=== PATIENT | male | born 1975 | race Caucasian/White ===

== ENCOUNTER → 2020-12-04 07:26 | Outpatient (CLI) | payer MEDICAID, SELFPAY ==
--- NOTE | 2020-12-04 07:27 | CA_ITS ---
APPROVED REPORT EXAM: Comprehensive 2D, Doppler, and color-flow Echocardiogram Net Architect: Carmelita Ford RVT Ht: 5 ft 6 in Wt: 234lbs BSA: 2.14 BP: 1968/118 mmHg Indications: HTN,EDEMA,SMOKER,GERD,ASTHMA 2D Dimensions LVOT 2.09 cm (M/F) 1.5-2.5 LA Volume 12.90 mL LA Volume Index 6.02 mL/m2 (M/F) 16-34 M-Mode Dimensions RVDd 2.41 cm (0.9-2.6) LA Diam 3.53 cm (1.9-4.0) LVDd 4.86 cm (3.5-5.7) Ao Diam 2.85 cm (2.0-3.7) LVDs 3.01 cm (3.5-5.7) IVSd 1.29 cm (0.6-1.1) PWd 0.60 cm (0.6-1.1) EF (Teich) 68.10% FS 38.10% EDV (Teich) 110.70 mL TAPSE 1.98 (<1.7) ESV (Teich) 35.30 mL LV Diastology E Decel Time 240.00 (160-240 msec) E/A Ratio 0.9 MED E' 6.60 (< 7 cm/sec) E'/MED E' Ratio 10.85 (>14) LAT E' 8.10 (<10 cm/sec) E/LAT E' Ratio 8.84 (>14) Mitral Valve MV E Max Hung. 72.00 (40-130 cm/s) MV A Velocity 82.00 (40-130 cm/s) E/A Ratio 0.88 MV Decel. Time 240.00 (160-240 ms) MV PHT 70.00 ms Pulmonary Valve PV Peak Velocity 86.00 (50-150 cm/s) Left Ventricle Left atrium is mildly enlarged, left ventricle is normal size, mild concentric left ventricular hypertrophy, visually estimated ejection fraction 55%, with no regional wall motion abnormality, Doppler evidence of impaired LV relaxation seen. Right Ventricle Right atrium and right ventricle are normal size and contractility. Aortic Valve Aortic valve is minimally thickened and fibrosed, there is no aortic stenosis or aortic insufficiency. Mitral Valve Mitral valve grossly normal, there is trace mitral regurgitation. Tricuspid Valve Tricuspid valve grossly normal, there is trace tricuspid regurgitation, tricuspid regurgitation jet velocity is inadequate for calculation of the right ventricular systolic pressure. Pulmonic Valve Pulmonic valve is poorly visualized. Great Vessels Aortic root is normal size. Inferior vena cava is poorly visualized. Pericardium No significant pericardial effusion noted. Conclusion 1. Mildly enlarged left atrium, normal left ventricular size, mild concentric left ventricular hypertrophy, visually estimated ejection fraction 55% with no regional wall motion abnormality, Doppler evidence of impaired LV relaxation. 2. Trace mitral and tricuspid regurgitation. 3. No significant pericardial effusion noted. Electronically signed by : Mingo Malone MD 12/04/2020 21:40:35
--- NOTE | 2020-12-04 07:27 | CA_ITS ---
APPROVED REPORT Teletype Mechanic: Carmelita Ford RVT Study Quality: Good Indications: HTN Risk Factors Hypertension Obesity Smoking Renal Artery Doppler Proximal (R) 142.7/ cm/sec Mid (R) 136.2/ cm/sec Distal (R) 166.8/ cm/sec Renal Aorta Ratio (R) 1.02 Segmental A. (R) 65.8/19.3 cm/sec RI: 0.70 Segmental A. Sup (R) 56.7/21.5 cm/sec Segmental A. Mid (R) 65.8/19.3 cm/sec Segmental A. Inf (R) 56.7/21.5 cm/sec Proximal (L) 231.2/ cm/sec Mid (L) 242.7/ cm/sec Distal (L) 142.7/ cm/sec Renal Aorta Ratio (L) 1.49 Segmental A. (L) 66.7/18.6 cm/sec RI: 0.72 Segmental A. Sup (L) 64.5/27.3 cm/sec Segmental A. Mid (L) 66.7/18.6 cm/sec Segmental A. Inf (L) 44.1/14.7 cm/sec Renal Measurements Kidney Size (R) 11.1x7.0 cm Cortical Thickness (R) 1.7 cm Kidney Size (L) 11.1x6.6 cm Cortical Thickness (L) 1.7 cm Findings Study suggests greater than 60% stenosis of the left renal artery. Study suggests no stenosis of the right renal artery. Conclusion Study suggests greater than 60% stenosis of the left renal artery. Study suggests no stenosis of the right renal artery. Electronically signed by : Jayesh Fang MD 12/04/2020 15:34:28
== END ==
PROVIDERS: PCP Family Medicine; Visit Provider Family Medicine
DX: I10 Essential (primary) hypertension (principal); R60.9 Edema, unspecified
CPT/HCPCS: 93306; 93976

== ENCOUNTER → 2020-12-19 12:18 | Outpatient (CLI) | payer MEDICAID, SELFPAY ==
[2020-12-19 12:43] LABS: Basophils # 0.1 K/mm3 (0-0.2); Basophils % 0.7 % (0.1-2.0); Eosinophils # 0.2 K/mm3 (0.0-0.4); Eosinophils % 1.9 % (0.1-12.0); Hematocrit 44.7 % (42.0-52.0); Hemoglobin 15.7 g/dL (14.1-18.0); Lymphocytes # 2.7 K/mm3 (0.7-4.5); Lymphocytes % 24.6 % (10-50); Mean Corpuscular HGB Conc 35.1 g/dL (31.8-35.4); Mean Corpuscular Volume 91.2 fl (80-94); Mean Platelet Volume 8.2 fl (7.4-10.4); Monocytes # 0.5 K/mm3 (0.1-1.0); Monocytes % 4.5 % (1.7-9.3); Neutrophils # 7.6 K/mm3 (1.8-7.8); Neutrophils % 68.3 % (37.0-80.0); Platelet Count 301 K/mm3 (142-424); Red Blood Count 4.91 M/mm3 (4.60-6.20); Red Cell Distribution Width 13.8 % (11.5-17.5); White Blood Count 11.1 K/mm3 (4.8-10.8)
[2020-12-19 13:28] LABS: Anion Gap 11.4 mEq/L (5-15); Blood Urea Nitrogen 16 mg/dl (9-20); Calcium 8.8 mg/dl (8.4-10.2); Carbon Dioxide 25 mmol/L (22.0-30.0); Chloride 105 mmol/L (98-107); Estimated Glomerular Filt Rate 92 ml/min (>60); GFR (African American) 111 ML/MIN (>60); Glucose 152 mg/dl (74-100); Potassium 4.4 mmoL/L (3.5-5.1); Sodium 137 mmol/L (136-145)
== END ==
PROVIDERS: Visit Provider Internal Medicine
DX: Z01.812 Encounter for preprocedural laboratory examination (principal); Z11.52 Encounter for screening for COVID-19; I10 Essential (primary) hypertension
CPT/HCPCS: 36415; 80048; 85025; C9803; U0003; U0005

== ENCOUNTER 2020-12-20 08:36 | Day surgery (SDC) | payer MEDICAID, SELFPAY ==
[2020-12-20] VITALS (14 sets, daily range): BP systolic 140–210; BP diastolic 31–127; PULSE 84–103; RESP 18; TEMP 36.7; O2SAT 84–97; BMI 37.8
--- NOTE | 2020-12-20 | IR_ITS ---
APPROVED REPORT Patient Location: Outpatient PROCEDURES Left heart catheterization Left ventriculogram Selective coronary angiogram Bilateral selective renal angiogram Drug-eluting stent deployment to the proximal mid dominant right coronary INDICATION Angina pectoris, class IV, Abnormal EKG suggesting inferior ischemia, Abnormal renal duplex suggesting renal artery stenosis, Severe hypertension Informed consent was obtained prior to the procedure. COMPLICATIONS NONE Estimated Blood Loss: LESS THAN 10 ML TECHNIQUE One percent lidocaine was used to anesthetize the right groin. The right femoral artery was accessed via the Seldinger technique. A 4-Singaporean sheath was placed in the right femoral artery. The JL-4 and JR-4 catheter was also used to perform left heart catheterization left ventriculogram and selective coronary angiogram. The JR4 catheter was used to perform bilateral selective renal angiogram. At the end of the diagnostic procedure therapeutic heparin was administered giving a therapeutic ACT and the 4 Singaporean sheath was exchanged for a 6 Singaporean sheath. A 6 Singaporean JR4 guide catheter was placed in the right coronary artery and a Choice PT extra-support wire was placed distally. A 3.5 x 38 mm resolute Belle stent was deployed at 20 biju reducing the stenosis to 0%. An additional 3.5 x 12 mm resolute Belle stent was placed proximal to the first stent yet still overlapping it and deployed at 20 biju further reducing the stenosis. There are excellent angiographic results at the end of the procedure with MARIA C-3 flow being present before and after the procedure. At the end the procedure the apparatus was removed the groin was reprepped gloves were changed sheath was removed good hemostasis was achieved using Perclose device patient was transferred to the postop putting her in stable condition ANGIOGRAPHIC RESULTS The left main artery Normal The left anterior descending artery Proximal mid vessel mild 10% stenoses The circumflex artery Nondominant normal The right coronary artery Is large dominant and has a proximal 70% stenosis with a mid vessel 50% stenosis and distal 40% stenoses The YOUNG ventriculogram reveals Is slightly dilated with ejection fraction of 50% The left ventricular end-diastolic pressure Severely elevated at 45 mmHg Right renal artery has a dual arterial supply with both arteries being normal Left renal artery singular normal IMPRESSION Severe proximal dominant right coronary stenosis as described above Successful stenting of the proximal to mid dominant right coronary severe disease reduced to 0% with 2 drug-eluting stents placed in a contiguous manner Dilated ventricle with severely elevated LVEDP secondary to hypertensive heart disease and diastolic dysfunction Normal renal arteries Patient required copious amounts of Versed and admitted to large amounts of daily alcohol usage. Patient's hypertension almost certainly stems from severe alcohol usage. 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 Brilinta 90 twice daily plus aspirin 81 mg daily 2. LDL less than 55 to be achieved with high intensity statin 3. Patient requires Lasix and spironolactone for severe LV dysfunction 4. Recommend patient undergo alcohol treatment and try to wean off alcohol 5. Cardiac rehabilitation 6. Avoidance of tobacco products 7. Patient's hypertension almost certainly stems from large amounts of daily alcohol. With better control of alcohol usage the hypertension should be easier controlled Electronically signed by : Refugio Lopez
--- NOTE | 2020-12-20 11:52 | HMH.PHACLD ---
Mynor Chao has received discharge medication counseling on the following medications: MD INCREASING LASIX FROM 20 MG DAILY TO 40 MG BID. ADDING ALDACTONE 50 MG BID, BRILINTA 90 MG BID, ASPIRIN 81 MG DAILY, AND ATORVASTIN 40 MG HS. PATIENT IS ALSO ALREADY TAKING LISINOPRIL-HCTZ 20/25 MG DAILY AND METOPROLOL SUCCINATE 100 MG DAILY.
[2020-12-20 13:17] LABS: CATHL Activated Clotting Time > 400 SEC (74-125)
== END 2020-12-20 14:35 | disposition home or self-care (01) ==
LOC: CATHLAB 08:38
PROVIDERS: PCP Family Medicine; Visit Provider Internal Medicine
DX: I70.1 Atherosclerosis of renal artery (principal); I11.0 Hypertensive heart disease with heart failure; R93.429 Abnormal radiologic findings on diagnostic imaging of unspecified kidney; I25.118 Atherosclerotic heart disease of native coronary artery with other forms of angina pectoris; Z79.899 Other long term (current) drug therapy; F17.210 Nicotine dependence, cigarettes, uncomplicated
CPT/HCPCS: 36252; 85347; 92928; 93458; 99152; C1725; C1760; C1769; C1876; C1894; C9600; J1644; Q9967

== ENCOUNTER → 2020-12-26 11:21 | Outpatient (CLI) | payer MEDICAID, SELFPAY ==
--- NOTE | 2020-12-26 11:26 | US_ITS ---
PROCEDURE: US URINARY BLADDER CLINICAL INDICATION: right quad pain Difficulty holding urine COMPARISON: No exams were available for comparison FINDINGS: Bilateral ureteral jets are demonstrated. The urinary bladder has an unremarkable appearance with a full bladder volume estimated at 397 mL. Postvoid volume is estimated at 11 mL. No obvious bladder mass. IMPRESSION: Unremarkable appearing urinary bladder. Minimal PVR of 11 mL. Dictated by: Jayesh Fang MD 12/27/2020 10:29 Jayesh Fang MD in [facility] 12/27/2020 10:29
--- NOTE | 2020-12-26 11:26 | US_ITS ---
PROCEDURE: US KIDNEY CLINICAL INDICATION: I20.9 - Angina pectoris, unspecified COMPARISON: US CA RENAL ARTERY DUPLEX from 12/04/2020 FINDINGS: The right kidney is [id number]. No hydronephrosis, cortical thinning, or renal mass or perinephric fluid collection is evident. The left kidney is [id number]. No hydronephrosis, cortical thinning, or renal mass or perinephric fluid collection is evident. IMPRESSION: Unremarkable bilateral renal ultrasound Dictated by: Jayesh Fang MD 12/27/2020 09:09 Jayesh Fagn MD in [facility] 12/27/2020 09:09
== END ==
PROVIDERS: PCP Family Medicine; Visit Provider Internal Medicine
DX: R10.11 Right upper quadrant pain (principal); I20.9 Angina pectoris, unspecified; I10 Essential (primary) hypertension; E78.5 Hyperlipidemia, unspecified; E66.9 Obesity, unspecified; N52.9 Male erectile dysfunction, unspecified; Z72.0 Tobacco use; Z68.32 Body mass index [BMI] 32.0-32.9, adult
CPT/HCPCS: 76770; 76857

== ENCOUNTER → 2021-01-02 10:21 | Outpatient (CLI) | payer MEDICAID, SELFPAY ==
[2021-01-02 11:02] LABS: Basophils # 0.1 K/mm3 (0-0.2); Basophils % 0.7 % (0.1-2.0); Eosinophils # 0.2 K/mm3 (0.0-0.4); Eosinophils % 1.8 % (0.1-12.0); Hematocrit 40.3 % (42.0-52.0); Hemoglobin 13.8 g/dL (14.1-18.0); Lymphocytes # 2.8 K/mm3 (0.7-4.5); Lymphocytes % 22.9 % (10-50); Mean Corpuscular HGB Conc 34.2 g/dL (31.8-35.4); Mean Corpuscular Hemoglobin 31.3 pg (27.0-31.2); Mean Corpuscular Volume 91.5 fl (80-94); Mean Platelet Volume 7.9 fl (7.4-10.4); Monocytes # 0.6 K/mm3 (0.1-1.0); Monocytes % 4.9 % (1.7-9.3); Neutrophils # 8.6 K/mm3 (1.8-7.8); Neutrophils % 69.7 % (37.0-80.0); Platelet Count 285 K/mm3 (142-424); Red Cell Distribution Width 13.7 % (11.5-17.5); White Blood Count 12.3 K/mm3 (4.8-10.8)
[2021-01-02 12:07] LABS: Anion Gap 13.5 mEq/L (5-15); Blood Urea Nitrogen 22 mg/dl (9-20); Calcium 9.6 mg/dl (8.4-10.2); Carbon Dioxide 28 mmol/L (22.0-30.0); Chloride 103 mmol/L (98-107); Estimated Glomerular Filt Rate 66 ml/min (>60); GFR (African American) 80 ML/MIN (>60); Glucose 114 mg/dl (74-100); Potassium 4.5 mmoL/L (3.5-5.1); Sodium 140 mmol/L (136-145)
== END ==
PROVIDERS: Internal Medicine; Visit Provider Urology
DX: R06.00 Dyspnea, unspecified (principal); I20.9 Angina pectoris, unspecified; I10 Essential (primary) hypertension; E78.5 Hyperlipidemia, unspecified; I70.1 Atherosclerosis of renal artery; E66.9 Obesity, unspecified; R06.83 Snoring; R40.0 Somnolence; R53.83 Other fatigue; R93.429 Abnormal radiologic findings on diagnostic imaging of unspecified kidney; R94.31 Abnormal electrocardiogram [ECG] [EKG]; Z72.0 Tobacco use; Z68.38 Body mass index [BMI] 38.0-38.9, adult
CPT/HCPCS: 36415; 80048; 85025

== ENCOUNTER → 2022-09-05 12:18 | Outpatient (CLI) | payer MEDICAID, SELFPAY ==
[2022-09-05 18:42] LABS: Basophils % 0.3 % (0.1-2.0); Eosinophils # 0.2 K/mm3 (0.0-0.4); Eosinophils % 1.8 % (0.1-12.0); Hematocrit 43.8 % (42.0-52.0); Hemoglobin 14.2 g/dL (14.1-18.0); Lymphocytes # 2.7 K/mm3 (0.7-4.5); Lymphocytes % 24.9 % (10-50); Mean Corpuscular HGB Conc 32.4 g/dL (31.8-35.4); Mean Corpuscular Hemoglobin 29.4 pg (27.0-31.2); Mean Corpuscular Volume 90.6 fl (80-94); Mean Platelet Volume 8.8 fl (7.4-10.4); Monocytes # 0.6 K/mm3 (0.1-1.0); Monocytes % 5.4 % (1.7-9.3); Neutrophils # 7.3 K/mm3 (1.8-7.8); Neutrophils % 67.7 % (37.0-80.0); Platelet Count 297 K/mm3 (142-424); Red Blood Count 4.83 M/mm3 (4.60-6.20); Red Cell Distribution Width 14.4 % (11.5-17.5); White Blood Count 10.8 K/mm3 (4.8-10.8)
[2022-09-05 18:50] LABS: Alanine Aminotransferase 39 U/L (12-78); Albumin Level 4.2 g/dl (3.5-5.0); Albumin/Globulin Ratio 1.4 (1.1-1.8); Alkaline Phosphatase 141 U/L (38-126); Anion Gap 16.5 mEq/L (5-15); Aspartate Amino Transferase 28 U/L (17-59); Bilirubin,Total 0.6 mg/dl (0.2-1.3); Blood Urea Nitrogen 22 mg/dl (9-20); Carbon Dioxide 24 mmol/L (22.0-30.0); Chloride 101 mmol/L (98-107); Chol/HDL Ratio 7.4 (1-3.5); Cholesterol 177 mg/dl (140-200); Estimated Glomerular Filt Rate 80 ml/min (>60); GFR (African American) 97 ML/MIN (>60); Glucose 154 mg/dl (74-100); HDL Cholesterol 24 mg/dl (40-60); Lipase 94 U/L (23-300); Potassium 4.5 mmoL/L (3.5-5.1); Sodium 137 mmol/L (136-145); Total Protein,Serum 7.2 g/dl (6.3-8.2)
[2022-09-05 18:51] LABS: Triglycerides 493 mg/dl (30-150)
[2022-09-05 19:01] LABS: Direct LDL Cholesterol 69.79 mg/dL (100-129)
[2022-09-05 19:19] LABS: Prostate Specific Ag Screen 0.1 ng/ml (0.0-4.0); Thyroid Stimulating Hormone 2.16 uIU/mL (0.465-4.68)
== END ==
PROVIDERS: PCP Family Medicine; Visit Provider Family Medicine
DX: R10.9 Unspecified abdominal pain (principal); I10 Essential (primary) hypertension; Z79.899 Other long term (current) drug therapy; Z12.5 Encounter for screening for malignant neoplasm of prostate
CPT/HCPCS: 80053; 80061; 83690; 84443; 85025; G0103

== ENCOUNTER 2023-03-19 08:10 | Outpatient (CLI) | payer MEDICAID, SELFPAY ==
--- NOTE | 2023-03-19 | CA_ITS ---
APPROVED REPORT Exam: Pharmacologic Technologist: Salena Johnson, Ht: 5 ft 7 in Wt: 255 lbs BSA: 2.24 m2 HR: 78 bpm BP: 166/97 mmHg Rhythm: NSR, rightward axis Indications: CAD Medical History Medications: Lorazepam,,,,, Omeprazole,,,,, Metoprolol,,,,, Atorvastatin,,,,, Tricor,,,,, Cefdinir,,,,, BRILINTA,,,,, Sertraline,,,,, SpirOnolactone,,,,, AZelastine,,,,, Lisinopril HCTZ,,,,, Clenpig,,,,, Cardiac Risk Factors: HTN, Hyperlipidemia, Smoking Stress Test Details Test: LEXISCAN HR Resting HR: 84 bpm Max Heart Rate (APMHR): 174 bpm Max HR Achieved: 95 bpm Target HR (85% APMHR): 148 bpm % of APMHR: 55 Recovery HR: 88 bpm BP Resting BP: 166/97 mmHg Max BP: 166/97 mmHg Recovery BP: 145.0/94.0 mmHg ECG Resting ECG: NSR, rightward axis Stress ECG: No significant ST changes Arrhythmia: None Clinical Exercise duration: 04:19 min Highest Stage Achieved: Exercise capacity: 1.0 METs Stress ECG Conclusion During lexiscan pt experinced SOA and flushed. No CP noted. No arrhythmias noted. No significant ST changes. Conclusion: Unremarkable lexiscan stress. Myoview images reported separately. Test Summary REST . . . . . . . Sitting REST 03:19 . . 84 . 166/ 97 . . Stage 1 01:00 . . 92 . . . . Stage 2 01:00 . . 93 . . . . Stage 3 01:00 . . 91 . 153/ 83 . . Stage 4 01:00 . . 88 . 160/ 87 . . Stage 4 01:19 . . 89 . 160/ 87 . Stop exercise at 04:19 RECOVERY 01:00 . . 88 . 145/ 94 . . RECOVERY 02:00 . . 87 . 164/ 87 . . RECOVERY 03:00 . . 84 . 149/ 86 . . RECOVERY 03:16 . . 85 . 149/ 86 . . Electronically signed by : Kandi Ray MD 03/19/2023 13:12:21
--- NOTE | 2023-03-19 08:10 | NM_ITS ---
APPROVED REPORT Exam: Nuclear Stress Test Indication: SOB, HTN, High cholesterol, Tobacco use, CAD Patient Location: Outpatient Stress Tech: Juli Cortes NM Tech:Brandy Mitchell, ARRT, RT (R)(N) Ht: 5 ft 6 in Wt: 248 lbs HR: 84 bpm BP: 166/97 mmHg BSA: 2.19 m2 TID: 1.43 BMI: 40.0 History: SOB, HTN, High cholesterol, Tobacco use, CAD Procedure: Patient received 0.4 mg of intravenous Lexiscan, resting heart rate 84 bpm, resting blood pressure 166/97 mmHg, with Lexiscan maximum heart rate achieved was 95 bpm which is % of the maximum predicted heart rate and blood pressure was 166/97 mmHg. With Lexiscan, patient denied any complaint of chest pain. Cardiac Stress and Resting SPECT Images: Cardiac Stress and Resting SPECT images were obtained using technetium 99m Myoview 32.4 mCi stress and 10.09 mCi at rest. Resting and stress imaging in supine and prone positions demonstrate a large sized, moderate, partially reversible perfusion defect in the inferior LV wall. There is also small moderate-sized, medium, partially reversible perfusion defect in the septal and anteroseptal LV colvin. There is marked increase in transient ischemic dilatation ratio (TID 1.43), suggestive of possible multivessel disease or balanced ischemia. Gated imaging demonstrates normal global LV systolic function. There is mild hypokinesis of the basal inferior LV wall. Conclusion: Large sized, moderate, partially reversible perfusion defect in the inferior LV wall. There is also small moderate-sized, medium, partially reversible perfusion defect in the septal and anteroseptal LV colvin. Findings are suggestive of reversible ischemia. There is marked increase in transient ischemic dilatation ratio (TID 1.43), suggestive of possible multivessel disease or balanced ischemia. Gated imaging demonstrates normal global LV systolic function. There is mild hypokinesis of the basal inferior LV wall. Electronically signed by : Kandi Ray MD 03/19/2023 13:14:37
[2023-03-19 11:01] LABS: Basophils # 0.1 K/mm3 (0-0.2); Basophils % 0.5 % (0.1-2.0); Eosinophils # 0.2 K/mm3 (0.0-0.4); Hematocrit 41.1 % (42.0-52.0); Hemoglobin 14.2 g/dL (14.1-18.0); Lymphocytes # 2.6 K/mm3 (0.7-4.5); Lymphocytes % 25.7 % (10-50); Mean Corpuscular HGB Conc 34.4 g/dL (31.8-35.4); Mean Corpuscular Hemoglobin 30.3 pg (27.0-31.2); Mean Platelet Volume 8.3 fl (7.4-10.4); Monocytes # 0.5 K/mm3 (0.1-1.0); Monocytes % 5.1 % (1.7-9.3); Neutrophils # 6.8 K/mm3 (1.8-7.8); Neutrophils % 66.7 % (37.0-80.0); Platelet Count 256 K/mm3 (142-424); Red Blood Count 4.67 M/mm3 (4.60-6.20); Red Cell Distribution Width 13.8 % (11.5-17.5); White Blood Count 10.1 K/mm3 (4.8-10.8)
[2023-03-19 11:43] LABS: Chloride 100 mmol/L (98-107); Potassium 4.6 mmoL/L (3.5-5.1)
[2023-03-19 11:46] LABS: Alanine Aminotransferase 38 U/L (12-78); Alkaline Phosphatase 131 U/L (38-126); Aspartate Amino Transferase 29 U/L (17-59); Bilirubin,Indirect 0.5 mg/dL (0.0-0.9); Bilirubin,Total 0.5 mg/dl (0.2-1.3); Bilirubin,Unconjugated 0.4 mg/dL (0.0-1.1); Blood Urea Nitrogen 18 mg/dl (9-20); Calcium 9.1 mg/dl (8.4-10.2); Carbon Dioxide 27 mmol/L (22.0-30.0); Cholesterol 151 mg/dl (140-200); Estimated Glomerular Filt Rate 91 ml/min (>60); GFR (African American) 110 ML/MIN (>60); Glucose 107 mg/dl (74-100); Total Protein,Serum 6.6 g/dl (6.3-8.2); Triglycerides 368 mg/dl (30-150); VLDL Cholesterol 74 mg/dL (0-40)
[2023-03-19 11:47] LABS: Chol/HDL Ratio 7.9 (1-3.5); HDL Cholesterol 19 mg/dl (40-60)
[2023-03-19 11:57] LABS: Direct LDL Cholesterol 74.24 mg/dL (100-129)
[2023-03-19 12:02] LABS: Free T4 (Free Thyroxine) 1.17 ng/dl (0.78-2.19)
[2023-03-19 12:16] LABS: Thyroid Stimulating Hormone 2.97 uIU/mL (0.465-4.68)
[2023-03-19 14:18] LABS: Vitamin B12 292 pg/mL (239-931)
[2023-03-19 14:21] LABS: Folate 5.44 ng/mL
[2023-03-19 15:19] LABS: Anion Gap 13.6 mEq/L (5-15); Sodium 136 mmol/L (136-145)
== END 2023-03-19 23:59 ==
LOC: RAD 08:10
PROVIDERS: PCP Family Medicine; Visit Provider Physician Assistant
DX: R06.09 Other forms of dyspnea (principal); I25.10 Atherosclerotic heart disease of native coronary artery without angina pectoris; I10 Essential (primary) hypertension
CPT/HCPCS: 36415; 78452; 80048; 80061; 80076; 82607; 82746; 84439; 84443; 85025; 93017; 93018

== ENCOUNTER 2023-03-21 11:00 | Day surgery (SDC) | payer MEDICAID, SELFPAY ==
[2023-03-21] VITALS (11 sets, daily range): BP systolic 105–155; BP diastolic 46–85; PULSE 64–96; RESP 16–20; TEMP 36.4; O2SAT 90–100; BMI 40.2
--- NOTE | 2023-03-21 07:11 | IR_ITS ---
APPROVED REPORT Patient Location: Outpatient Exceptional Student Education Aide: CR Mcdonald RT (R) PROCEDURES Left heart catheterization Left ventriculogram Selective coronary angiogram INDICATION Known coronary disease, Abnormal Myoview, Angina pectoris, Informed consent was obtained prior to the procedure. COMPLICATIONS None Estimated Blood Loss: Less than 10 mls TECHNIQUE One percent lidocaine was used to anesthetize the right groin. The right femoral artery was accessed via the Seldinger technique. A 4-Canadian sheath was placed in the right femoral artery. The JL-4 and JR-4 catheter was also used to perform left heart catheterization left ventriculogram and selective coronary angiogram. At the end of the procedure the patient was transferred to the post-op holding area in stable condition for arterial sheath removal. ANGIOGRAPHIC RESULTS The left main artery Normal The left anterior descending artery Gives rise to a large caliber first diagonal artery which is widely patent and normal. Immediately distal to this large first diagonal artery is a concentric 50% stenosis within the LAD. The remaining LAD is widely patent. The circumflex artery Is nondominant yet still large and has mild diffuse 10 to 20% stenoses The right coronary artery Is a dominant vessel and has stents in the proximal and midportion which are widely patent with minimal concentric in-stent restenosis. Distal to the stent is a 30% concentric stenosis. The YOUNG ventriculogram reveals Normal 60% The left ventricular end-diastolic pressure Severely elevated at 30 mmHg IMPRESSION Moderate disease and an LAD immediately distal to a large first diagonal artery. Normal ejection fraction Severely elevated LVEDP Widely patent stent in the right coronary PLAN 1. The LAD stenosis is moderate. FFR is not accurate in the setting of severely elevated LVEDP. In order to stent the LAD this would require crossing the large diagonal artery which may result in plaque shift which would then result in a bifurcating stent in this large otherwise normal diagonal artery. 2. Given the severely elevated LVEDP I would like to treat patient for diastolic dysfunction despite the anterior defect on Myoview. 3. When talking to patient it appears most of his symptoms are dyspnea rather than overt chest pain. I suggest treating the diastolic dysfunction and seeing if symptoms improve while also maximizing antianginal medications. If after treatment of the diastolic dysfunction the symptoms persist he can be brought back to the Biosolids Management Technician and undergo additional interrogation and possible bifurcating stent to the proximal LAD into the large diagonal artery. 4. LDL less than 55 to be achieved high intensity statin 5. Avoidance of tobacco products 6. Risk factor modification Electronically signed by : Refugio Lopez MD 03/21/2023 12:06:22
[2023-03-21] MEDS: NITROGLYCERIN 800MCG/8ML SYR (CATH LAB) 800 MCG IA (11:52)
[2023-03-21] MEDS: HEPARIN 1,000 UNITS/ML 10ML VIAL (CATH LAB) 10000 UNIT IV (11:52)
[2023-03-21] MEDS: diphenhydrAMINE 50MG/ML VIAL 50 MG IV (11:52)
[2023-03-21] MEDS: VERAPAMIL 2.5MG/ML 2ML VIAL 2.5 MG IV (11:52)
[2023-03-21] MEDS: LIDOCAINE 1% 10ML MDV 20 ML IJ (11:52)
[2023-03-21] MEDS: 0.9 % SODIUM CHLORIDE 500 ML 25 ML IV (11:53)
[2023-03-21] MEDS: HEPARIN 1,000 UNITS/500ML NS (CATH LAB) 3000 UNIT IV (11:53)
[2023-03-21] MEDS: MIDAZOLAM HCL 1MG/1ML 5ML VIAL 1 MG IV (11:53)
[2023-03-21] MEDS: FENTANYL 100MCG/2ML VIAL 50 MCG IV (11:54)
[2023-03-21] MEDS: IOPAMIDOL-370 (76%);100ML BOTTLE 50 ML IV (13:56)
== END 2023-03-21 14:57 | disposition home or self-care (01) ==
PROVIDERS: PCP Family Medicine; Visit Provider Internal Medicine
DX: R94.39 Abnormal result of other cardiovascular function study (principal); I25.118 Atherosclerotic heart disease of native coronary artery with other forms of angina pectoris; F17.210 Nicotine dependence, cigarettes, uncomplicated; I10 Essential (primary) hypertension; Z79.899 Other long term (current) drug therapy
CPT/HCPCS: 93458; 99152; C1725; C1760; C1769; J1644; Q9967

== ENCOUNTER 2024-03-18 10:47 | Outpatient (CLI) | payer MEDICAID, SELFPAY ==
[2024-03-18 18:58] LABS: Creatinine,Urine Random 67 mg/dL (Not Estab.)
[2024-03-18 19:00] LABS: Microalbumin < 6.000 mg/L (0-16.7)
[2024-03-18 19:10] LABS: Alanine Aminotransferase 71 U/L (12-78); Albumin Level 3.8 g/dl (3.5-5.0); Albumin/Globulin Ratio 1.6 (1.1-1.8); Alkaline Phosphatase 143 U/L (38-126); Anion Gap 12.7 mEq/L (5-15); Aspartate Amino Transferase 97 U/L (17-59); Bilirubin,Total 0.5 mg/dl (0.2-1.3); Blood Urea Nitrogen 22 mg/dl (9-20); Carbon Dioxide 22 mmol/L (22.0-30.0); Chloride 104 mmol/L (98-107); Estimated Glomerular Filt Rate 80 ml/min (>60); GFR (African American) 97 ML/MIN (>60); Globulin 2.4 g/dL (1.3-3.2); Glucose 256 mg/dl (74-100); Potassium 4.7 mmoL/L (3.5-5.1); Sodium 134 mmol/L (136-145); Total Protein,Serum 6.2 g/dl (6.3-8.2)
[2024-03-18 20:21] LABS: T4 (Thyroxine) 13.9 ug/dl (5.53-11.0)
[2024-03-18 20:35] LABS: Thyroid Stimulating Hormone 5.88 uIU/mL (0.465-4.68)
[2024-03-18 20:38] LABS: HIV Combo NEGATIVE (Negative)
[2024-03-18 20:52] LABS: Hepatitis C Ab Qual. W/ RFX REACTIVE (Negative)
== END 2024-03-18 23:59 | disposition home or self-care (01) ==
LOC: LAB.DROPOF 03-19 10:51
PROVIDERS: PCP Family Medicine; Visit Provider Family Medicine
DX: Z13.1 Encounter for screening for diabetes mellitus (principal); Z11.59 Encounter for screening for other viral diseases; I11.9 Hypertensive heart disease without heart failure; F17.210 Nicotine dependence, cigarettes, uncomplicated
CPT/HCPCS: 80053; 82043; 82570; 84436; 84443; 86803; 87389; 87522

== ENCOUNTER 2024-10-08 11:00 | Outpatient (CLI) | payer MEDICAID, SELFPAY ==
[2024-10-08 16:21] LABS: Hematocrit 43.5 % (42.0-52.0); Hemoglobin 14.9 g/dL (14.1-18.0); Immature Granulocytes % 0.7 %; Mean Corpuscular HGB Conc 34.3 g/dL (31.8-35.4); Mean Corpuscular Hemoglobin 30.0 pg (27.0-31.2); Mean Corpuscular Volume 87.5 fl (80-94); Nucleated Red Blood Cells % 0 %; Platelet Count 419 K/mm3 (142-424); Red Blood Count 4.97 M/mm3 (4.60-6.20); Red Cell Distribution Width-SD 44.1 fL; White Blood Count 14.1 K/mm3 (4.8-10.8)
[2024-10-08 16:45] LABS: Alanine Aminotransferase 44 U/L (12-78); Albumin Level 4.4 g/dl (3.5-5.0); Albumin/Globulin Ratio 1.6 (1.1-1.8); Alkaline Phosphatase 129 U/L (38-126); Anion Gap 13.5 mEq/L (5-15); Aspartate Amino Transferase 71 U/L (17-59); Bilirubin,Total 0.5 mg/dl (0.2-1.3); Blood Urea Nitrogen 24 mg/dl (9-20); Calcium 9.8 mg/dl (8.4-10.2); Carbon Dioxide 22 mmol/L (22.0-30.0); Chloride 105 mmol/L (98-107); Cholesterol 257 mg/dl (140-200); Creatinine,Serum 1.70 mg/dl (0.66-1.25); Estimated Glomerular Filt Rate 43 ml/min (>60); GFR (African American) 52 ML/MIN (>60); Globulin 2.7 g/dL (1.3-3.2); Glucose 121 mg/dl (74-100); HDL Cholesterol 24 mg/dl (40-60); Potassium 4.5 mmoL/L (3.5-5.1); Sodium 136 mmol/L (136-145); Total Protein,Serum 7.1 g/dl (6.3-8.2); Triglycerides 395 mg/dl (30-150)
[2024-10-08 17:15] LABS: Thyroid Stimulating Hormone 5.98 uIU/mL (0.465-4.68)
--- OUTSIDE RECORDS SUMMARY | 2024-10-09 10:22 | XMS_ITS | Clinical Summary ---
Author Organization [employer] [facility] are Address [address] [place] [address] Phone Care Team Providers Care Polymer Specialist Name Role Phone Hayley Guillermo APRN Primary Care Physician [ ] Conditions or Problems No information available. Medications No information available. Medications Administered No information available. Allergies, Adverse Reactions, Alerts No information available. Results No information available. Plan of Care No information available. Procedures No information available. Vital Signs No information available. Immunizations No information available. Advance Directives No information available.
--- OUTSIDE RECORDS SUMMARY | 2024-10-09 10:23 | XMS_ITS | Encounter Summary ---
Author Organization [place] [address] Care Team Providers Care Bleacher Operator Name Role Phone Rickey Contreras MD Primary Care Provider Veronica Wilson RN Unavailable Unavaila ble Eusebia Martinez MD Unavailable [phone] Milo Koch MD Primary Care Provider [phone] Roosevelt Salazar Ud, MD Unavailable [phone] Ronnie Santos MD Unavailable [phone] Encounter Details Date Type Department Care Team (Late st Contact Info) Description 02/27/2018 Orders Only [facility]P [facility] [address] [id number] Komal Lan MD [address] [place] [address] Social History Tobacco Use Types Packs/Day Years Used Date Smoking Tobacco: Every Day Cigarettes 1.5 20 Smokeless Tobacco: Former Chew Alcohol Use Standard Drinks/Week Comments No 0 (1 standard drink = 0.6 oz pur e alcohol) Sex and Gender Information Value Date Recorded Sex Assigned at Not on file Legal Sex Male 6:17 PM EDT Gender Identity Not on file Sexual Orientation Not on file documented as of this encounter Plan of Treatment Upcoming Encounters Date Type Department Care Team (Late st Contact Info) Description 11/01/2024 7:00 PM EDT Appointment [facility] [address] [place] [address] 12/21/2024 10:30 AM EDT Office Visit SEP Sleep Medicine [facility] [address] [facility] [address] [place] [id number] Page Mccormick, COFOUNDER [address] [facility] [address] [place] [address] documented as of this encounter Goals Goal Patient Goal Type Associated Problems Recent Progress Patient-Stated? Author Maintain a healthy diet, exercise regularly and maintain an ideal body weight General No Annie Vogel RMA Stay Tobacco Free Lifestyle No Annie Vogel RMA documented as of this encounter Procedures Procedure Name Priority Date/Time Associated Diagnosis Comments [facility]ED COLONOSCOPY Routine 02/27/2018 2:00 PM EST documented in this encounter Results * GMED COLONOSCOPY (02/27/2018 2:00 PM EST) 02/27/2018 2:00 PM EST Impressions [facility] - 03/06/2018 7:12 AM EST Polyp (5 mm) in the ascending colon. (Polypectomy). Polyp (5 mm) in the sigmoid colon. (Polypectomy). Internal hemorrhoids. Otherwise normal colonoscopy. Plan: Await pathology results Colonoscopy in 5 years Patient to follow-up with Primary Care Physician and/or Referring Physician This section is an excerpt of the full report. us Komal Lan MD GI PROCEDURE ORDERAB LES Edited Result - Final [facility] [address] [place], [place] [id number] documented in this encounter Visit Diagnoses Not on filedocumented in this encounter Additional Health Concerns Infection Onset Date Last Indicated Resolved Time R/O COVID-19 06/19/2021 06/19/2021 06/19/2021 2:07 PM EDT documented as of this encounter Care Teams Bleacher Operator Relationship Specialty Start Date End Date Rickey Contreras MD [address] [place] [phone] PCP - General Family Medicine 11/17/17 02/25/23 Milo Koch MD [address] [place] [address] PCP - General Family Medicine 02/26/23 Veronica Wilson, RN Repair Armature Winder Registered Nurse 06/22/21 06/24/21 Eusebia Martinez MD [address] [place] [id number] Physician Internal Medicine-Cardiovascular Disease 07/06/21 [place] [address] [place] [address] Internal Medicine-Nephrology 09/24/23 Ronnie Santos MD [address] [place] [address] Physician Otolaryngology 10/22/23 documented as of this encounter
--- OUTSIDE RECORDS SUMMARY | 2024-10-09 10:23 | XMS_ITS | Clinical Summary ---
Author Organization [facility] OM Address [address] [place] [address] Phone Care Team Providers Care Boat Worker Name Role Phone Eusebia Martinez MD Unavailable [phone] Milo Koch MD Primary Care Provider [phone] Roosevelt Salazar Ud, MD Unavailable [phone] Parth Santos MD Unavailable [phone] Allergies No known active allergies Medications acetaminophen Oral tablet Take by mouth every 6 hours as needed for Pain (Pulled muscle in neck). Active omeprazole (PRILOSEC) 40 mg Oral Capsule, Delayed Release(E.C.) Take 1 Cap by mouth 2 times daily. 60 Cap 2 0 Active ticagrelor (BRILINTA) 90 mg Oral Tablet Take 90 mg by mouth 2 times daily. Active metoprolol succinate ER (TOPROL-XL) 100 mg Oral Tablet Sustained Release 24 hr Take 100 mg by mouth daily. Active aspirin 81 mg Oral Tablet, Delayed Release (E.C.) Take 81 mg by mouth daily. Active spironolactone (ALDACTONE) 50 mg Oral Tablet TAKE 1 TABLET ORALLY TWICE A DAY Active fenofibrate (TRICOR) 145 mg Oral Tablet Take 145 mg by mouth daily. 3 Active NIFEdipine (PROCARDIA XL) 60 mg Oral Tablet Extended Rel 24 hr Take 1 Tablet by mouth daily. 30 Tablet 11 4 Active bumetanide (BUMEX) 2 mg Oral Tablet Take 1 Tablet by mouth daily as needed. 30 Tablet 3 4 Active Olopatadine 0.6 % Nasl Hughes, Non-AerosolIndi cations:Dysfunc tion of both eustachian tubes 2 Sprays by Nasal route daily. 30.5 g 5 4 Active atorvastatin (LIPITOR) 40 mg Oral TabletIndicatio ns:ASHD (arteriosclerot ic heart disease),S/P coronary artery stent placement Take 1 Tablet by mouth nightly. 5 Active Alcohol Swabs Top Pads, Medicated Prepare site by wiping skin vigorously prior to testing blood glucose or injecting insulin. 200 Each 5 Active Blood Sugar Diagnostic Misc Strip Test blood sugar 3 times per day 50 Each 5 Active Blood-Glucose Meter [facility] Use as directed for blood glucose monitoring 1 Each 5 Active insulin syr/ndl U100 half miranda 0.3 mL 31 gauge x 15/64 Misc Syringe 1 Syringe by [facility]Non-Drug; Combo Route) route 4 times daily. 100 Each 5 Active Lancets [facility] Test blood sugar 3 times per day 200 Each 5 Active VITAMIN D 1,250 mcg (50,000 unit) Oral Capsule TAKE 1 CAPSULE BY MOUTH ONCE WEEKLY 12 Capsule 11 5 Active Active Problems Patient Care Coordination No te Formatting of this note migh t be different from the original. 10/25/19 no show warning letter sent SEP Vera Alba 07/20/21 no show warning letter sent [facility] Parth Care gap audit completed by Sharlene Doyle RN on 03/13/2023. [facility]: [facility] ADJUNCT WRITING INSTRUCTOR Appt 03/13/23 and NS ADJUNCT WRITING INSTRUCTOR Appt 03/27/23 Problem Noted Date Diagnosed Date Subclinical hypothyroidism 03/13/2024 Assessment & Plan (03/13/2024 5:54 PM EST): Elevated TSH with essentially normal T4. Typically supplementation is recommended if the TSH is greater than 10. Patient's TSH level currently at 6.3. TPO antibody negative. Defer treatment to PCP. A trial of levothyroxine for 3 to 6 months may be considered in patients with bothersome hypothyroid symptoms Type 2 diabetes mellitus with hyperglycemia 05/2024 Assessment & Plan (03/13/2024 5:54 PM EST): Newly diagnosed. A1c ordered and personally reviewed noted to be 16.9. Labs are reassuring for DKA. No evidence of infection. Status post IV insulin. Start metformin. Status post aggressive IV fluid hydration. Started on Lantus 30 units twice daily, 6 units 3 times daily with meals and medium sliding scale. 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 Assessment & Plan (03/12/2024 2:15 PM EST): Newly diagnosed. A1c ordered and personally reviewed noted to be 16.9. Labs are reassuring for DKA. No evidence of infection. Status post IV insulin. Start insulin. Continue with aggressive IV fluid hydration. Started on Lantus 23 units twice daily, 5 units 3 times daily and high sliding scale. Hypoglycemic protocol in place. 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 Check TSH Hyperlipidemia associated with type 2 diabetes m jose 03/12/2024 Assessment & Plan (03/13/2024 5:54 PM EST): Continue on statin and fenofibrate. Recommend a follow-up lipid panel Assessment & Plan (03/12/2024 2:15 PM EST): Continue on statin and fenofibrate. Check lipid panel Urinary hesitancy 03/12/2024 Assessment & Plan (03/13/2024 12:13 PM EST): Suspect BPH. Initiated on Flomax with self-reported improvement. Will prescribe at discharge Assessment & Plan (03/12/2024 2:15 PM EST): Suspect BPH. Will start on Flomax Hyperglycemia 03/11/2024 Assessment & Plan (03/13/2024 5:54 PM EST): Improved Abnormal stress test 09/24/2023 Anxiety 09/24/2023 Chronic dysfunction of both eustachian tubes Constipation 09/24/2023 Coronary artery disease invo [place] coronary artery of [place] heart without angina pectoris 09/24/2023 Assessment & Plan (03/13/2024 12:03 PM EST): Continue on aspirin and statin Assessment & Plan (03/12/2024 2:15 PM EST): Continue on aspirin and statin Diastolic dysfunction 09/24/2023 Dyslipidemia 09/24/2023 Dyspnea 09/24/2023 Episodic mood disorder 09/24/2023 External hemorrhoid 09/24/2023 Internal hemorrhoid 09/24/2023 GERD (gastroesophageal reflux disease) History of rotator cuff surgery 09/24/2023 Morbid obesity due to excess calories 09/24/2023 Assessment & Plan (03/12/2024 2:15 PM EST): Complicates management Tinnitus of both ears 09/24/2023 Tobacco abuse 09/24/2023 Tobacco abuse counseling 09/24/2023 Chest pain 06/19/2021 RODOLFO (renal artery stenosis) 06/19/2021 Assessment & Plan (03/13/2024 12:03 PM EST): Monitored by outpatient nephrology. Hold BUSINESS TAXES SPECIALIST medications Assessment & Plan (03/12/2024 2:15 PM EST): Monitored by outpatient nephrology. Hold BUSINESS TAXES SPECIALIST medications Mixed conductive and sensori neural hearing loss of left ear with restricted hearing of right ear 09/22/2019 Sensorineural hearing loss ( SNHL) of right ear with restricted hearing of left ear 09/22/2019 Middle ear effusion, left 09/22/2019 Annual physical exam 12/07/2018 Hypertension associated with diabetes 12/07/2018 Assessment & Plan (03/13/2024 5:54 PM EST): Resume BUSINESS TAXES SPECIALIST metoprolol, nifedipine, Aldactone and Bumex on discharge Assessment & Plan (03/12/2024 2:15 PM EST): Currently hypotensive. Hold metoprolol, nifedipine, Aldactone and Bumex Gastroesophageal reflux disease with esophagitis 12/07/2018 Environmental allergies 12/07/2018 Generalized anxiety disorder 12/07/2018 ED (erectile dysfunction) of non-organic origin 12/07/2018 Cigarette smoker 12/07/2018 History of hepatitis C 12/07/2018 Overview (12/07/2018): 11/18/17 Quant was NEG History of colon polyps 12/07/2018 MATEO (acute kidney injury) 10/28/2018 Assessment & Plan (03/13/2024 5:54 PM EST): Resolved. Baseline creatinine of 1.06 on 12/2023. Presenting at 1.45. Significantly improved status post IV hydration. Assessment & Plan (03/12/2024 2:15 PM EST): Baseline creatinine of 1.06 on 12/2023. Presenting at 1.45. Continue with aggressive IV fluid hydration. Avoid nephrotoxic agents. Avoid diuretics Resolved Problems Problem Noted Date Diagnosed Date Resolved Date Chest pain 10/28/2018 12/07/2018 Encounters Date Type Department Care Team Description 09/20/2024 Orders Only [facility] [place] [address] [place] [address] [address] [place] [address] Emiliano Nicole MD Obstructive sleep apnea (Primary Dx) 08/17/2024 Refill [facility] NEPHROLOGY [facility] [address] [place] [address] [place] [address] Roosevelt Salazar Ud, MD Medication Refill 07/16/2024 Refill [facility] [address] [place] [address] Eusebia Martinez MD Medication Refill from Last 3 Months Immunizations Immunization Administration Dates Next Due Influenza Vaccine Quadrivalent 12/07/2018 Influenza Vaccine Quadrivalent PF 01/04/2020,12/2017 Influenza Vaccine, Unspecified Formulation 02/25 Pneumococcal Polysaccharide 23 Valent 11/17/2017 Tdap 11/17/2017 Surgical History Surgery Date Site/Laterality Comments TONSILLECTOMY UPPER GASTROINTESTINAL ENDOSCOPY 02/27/2012 N/A Esophagogastroduodenoscopy with biopsy; Surgeon: Edd Toledo MD; Location: [facility] END[facility]; Service: Endoscopy EAR SURGERY Bilateral tubes COLONOSCOPY SHOULDER ARTHROSCOPY 09/02/2019 Left LEFT SHOULDER ARTHROSCOPY, ROTATOR CUFF REPAIR, SUBACROMIAL DECOMPRESSION WITH ACROMIOPLASTY, LABRAL DEBRIDEMENT, OPEN BICEPS TENODESIS; Surgeon: Lee Mccoy MD; Location: [facility]; Service: Orthopedics Medical devices from this surgery are in the Medical Devices section. CARDIAC SURGERY Medical History Medical History Date Comments Acid reflux Hypertension Angina pectoris 2019 due to dehydrati on; kept overnight Arthritis left shoulder CAD (coronary artery disease) Colon polyp S/P primary angioplasty with coronary stent 2020 [facility] HLD (hyperlipidemia) Family History Medical History Relation Name Comments No Known Problems Brother Cancer Father No Known Problems Maternal Grandfather No Known Problems Maternal Grandmother Bladder cancer Mother Cancer Mother Allergies Other No Known Problems Paternal Grandfather No Known Problems Paternal Grandmother Cancer Sister Colon Cancer Sister Migraines Sister Bleeding Prob Neg Hx Hearing Loss Neg Hx Heart Disease Neg Hx Thyroid Disease Neg Hx Relation Name Status Comments Brother Father Maternal Grandfather Maternal Grandmother Mother Other Paternal Grandfather Paternal Grandmother Sister Social History Tobacco Use Types Packs/Day Years Used Date Smoking Tobacco: Every Day Cigarettes 1 32.6 Started: 03/10/1992 Smokeless Tobacco: Never Tobacco Cessation:Ready to Q uit: Not Asked; Counseling Given: Not Answered Alcohol Use Standard Drinks/Week Comments Not Currently 0 (1 standard drink = 0.6 oz pur e alcohol) Quit 2020 [facility] Utilities Answer Date Recorded In the past 12 months has Credible, gas, oil, or water Measy threatened to shut off services in your home? No 03/12/2024 Overall Financial Resource Strain (CARDIA) Answe r Date Recorded How hard is it for you to pa y for the very basics like food, housing, medical care, and heating? Not very hard 03/12/2024 PHQ-2 Answer Date Recorded PHQ-2 Total Score 0 03/12/2024 [facility] [place] [facility] Occupat ional Health - Occupational Stress Questionnaire Answer Date Recorded Do you feel stress - tense, restless, nervous, or anxious, or unable to sleep at night because your mind is troubled all the time - these days? Only a little 03/12/2024 Exercise Vital Sign Answer Date Recorde d On average, how many days pe r week do you engage in moderate to strenuous exercise (like a brisk walk)? 0 days 03/12/2024 On average, how many minutes do you engage in exercise at this level? 0 min 03/12/2024 Hunger Vital Sign Answer Date Recorded Within the past 12 months, y ou worried that your food would run out before you got the money to buy more. Never true 03/12/19 25 Within the past 12 months, t he food you bought just didn't last and you didn't have money to get more. Never true 03/12/2024 PRAPARE - Transportation Answer Date Re corded In the past 12 months, has l ack of transportation kept you from medical appointments or from getting medications? No 06/08 In the past 12 months, has l ack of transportation kept you from meetings, work, or from getting things needed for daily living? No 06/20/2021 [facility] IP Transportation Answer D ate Recorded In the past 12 months, has l ack of reliable transportation kept you from medical appointments, meetings, work or from getting things needed for daily living? No 03/12/2024 Sex and Gender Information Value Date Recorded Sex Assigned at Not on file Legal Sex Male 6:17 PM EDT Gender Identity Not on file Sexual Orientation Not on file Obstetrics History Last Filed Vital Signs Vital Sign Reading Time Taken Comments Blood Pressure 153/71 03/13/2024 11:49 AM EST Pulse 107 03/13/2024 1:18 PM EST Temperature 36.6 C (97.8 F) 03/13/2024 11:49 AM EST Respiratory Rate 18 03/13/2024 11:49 AM EST Oxygen Saturation 97% 03/13/2024 11:49 AM EST Inhaled Oxygen Concentration - - Weight 113.4 kg (250 lb) 03/11/2024 10:12 PM EST Height 170.2 cm (5' 7 ) 03/12/2024 7:46 PM EST Body Mass Index 39.16 03/11/2024 10:12 PM EST Plan of Treatment Upcoming Encounters Date Type Department Care Team (Late st Contact Info) Description 11/01/2024 7:00 PM EDT Appointment [facility] [place] [address] [place] [address] [place] [address] 12/21/2024 10:30 AM EDT Office Visit [facility] [address] [phone] Mccormick Page A, SECURITY EXPERT [address] [address] Health Maintenance Due Date Last Done Comments Diabetic Eye Exam 1994 Hepatitis B Vaccine (1 of 3 - 19+ 3-dose series) 07/01/1995 Annual Wellness Exam 12/08/2019 12/07/2018, 11/18/19 18 Cologuard 2021 FIT 2021 Sigmoidoscopy 2021 Virtual Colonography 2021 COVID-19 Vaccine ( season) 2023 02/07/2022 Hemoglobin A1c 09/08/2024 03/11/2024, 11/09, 11/18/2017, Additional history exists Influenza Vaccine (#1) 2024 , 02/07/2022, 01/04/2020, Additional history exists Kidney Health: eGFR 03/13/2025 03/13/2024, 03/12/2024, 03/11/2024, Additional history exists Lipids 03/13/2025 03/13/2024, 07/09, 07/30/2023, Additional history exists Kidney Health: uACR 03/18/2025 03/18/2024 DTaP/TDaP/Td (2 - Td or Tdap) 11/18/2027 11/17/2017 Colon Cancer Screening 09/21/2028 Colonoscopy 09/21/2028 09/23/2023, 02/27/2018 Pneumococcal Vaccine 0-49 Completed 04/05/2022, 12/2017 Meningococcal B Vaccine Aged Out No l onger eligible based on patient's age to complete this topic Goals Goal Patient Goal Type Associated Problems Recent Progress Patient-Stated? 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 Device Identifier Shelf Expiration Date Model / Serial / Lot Healicoil Regenesorb Suture [place] 5.5mm W/3 Ultrabraid Sutures - [id number] Implanted:Qty: 1 on 09/02/2019 by Lee Mccoy MD at [facility] Left: Shoulder [employer]:ORTHO 10/01/2019 [id number] / / [id number] [place] Suture 4.5 Footprint Ultra Pack - [id number] Implanted:Qty: 2 on 09/02/2019 by Lee Mccoy MD at [facility] Left: Shoulder [employer] 05/01/2024 [id number] / / [id number] Procedures Procedure Name Priority Date/Time Associated Diagnosis Comments BASIC METABOLIC PANEL Early AM 03/13/2024 6:28 AM EST LIPID SCREEN Early AM 03/13/2024 6:28 AM EST HEMOGLOBIN A1C Routine 03/11/2024 10:20 PM EST COLONOSCOPY Routine 09/23/2023 9:04 AM EDT Encounter for colonoscopy due to history of colonic polyp Epigastric abdominal pain Gastroesophageal reflux disease with esophagitis without hemorrhage Family history of colon cancer from Last 3 Months or Most Recently Relevant to Health Maintenance Results * (ABNORMAL) LIPID SCREEN (03/13/2024 6:28 AM EST) Cholesterol 130 <200 mg/dL 03/13/2024 10:43 AM EST [facility] Comment: < 200 Desirable 200 - 239 Borderline High >= 240 High Triglyceride 503(H) <150 mg/dL 03/13/2024 10:43 AM EST [employer] Comment: < 150 Normal 150 - 199 Borderline High 200 - 499 High >= 500 Very High HDL 13(L) >=40 mg/dL 03/13/2024 10:43 AM EST [employer] Comment: > 60 Optimal 40 - 60 Acceptable < 40 Low LDL Calculated 44 <100 mg/dL 03/13/2024 10:43 AM EST [facility] Comment: < 100 Optimal 100 - 129 Near or above optimal 130 - 159 Borderline High 160 - 189 High >= 190 Very High Non-HDL-C Calculated 117 <=129 mg/dL 03/13/2024 10:43 AM EST [facility] [employer] [facility] Comment: <130 Desirable 130-159 Above Desirable 160-189 Borderline High 190-219 High >= 220 Very High Fasting Specimen? Unknown None 025 10:43 AM EST [facility] Blood VENOUS BLOOD / Unknown Venipuncture / Unknown 03/13/2024 6:28 AM EST 03/13/2024 6:47 AM EST us Foreign Meza MD CHEMISTRY ORDERABLES Final Result [employer] [address] [facility] , [place] [address] [facility] [address] [place] [address] * (ABNORMAL) BASIC METABOLIC PANEL (03/13/2024 6:28 AM EST) Sodium 135(L) 136 - 145 mmol/L 03/13/2024 7:41 AM EST [facility] Potassium 3.6 3.5 - 5.0 mmol/L 03/13/2024 7:41 AM EST [facility] Chloride 105 98 - 107 mmol/L 03/13/2024 7:41 AM EST [facility] Total CO2 19(L) 22 - 29 mmol/L 03/13/2024 7:41 AM EST [facility] Anion Gap 11 7 - 16 mmol/L 03/13/2024 7:41 AM EST [facility] Calcium 7.0(L) 8.6 - 10.4 mg/dL 03/13/2024 7:41 AM EST [facility] Glucose Lvl 202(H) 70 - 99 mg/dL 03/13/2024 7:41 AM EST [facility] BUN 15 6 - 20 mg/dL 03/13/2024 7:41 AM EST [facility] Creatinine 0.82 0.67 - 1.30 mg/dL 03/13/2024 7:41 AM EST [facility] eGFR (CKD-EPIcr 2020) 109 >=60 mL/min/1.7 3 m2 03/13/2024 7:41 AM EST [facility] Comment:Estimated GFR was ca lculated using the CKD-EPIcr (2020) equation refit without race. The equation is recommended by the National Kidney Foundation - [place] Society of Nephrology Task Force. Blood VENOUS BLOOD / Unknown Venipuncture / Unknown 03/13/2024 6:28 AM EST 03/13/2024 6:47 AM EST us Foreign Meza MD CHEMISTRY ORDERABLES Final Result [facility] [address] [place] [address] * (ABNORMAL) HEMOGLOBIN A1C (03/11/2024 10:20 PM EST) Hgb A1C 16.9(H) 4.2 - 5.6 % 03/12/2024 12:03 PM EST [facility] Est. Avg Glucose 438 mg/dL 03/12/2024 12:03 PM EST [facility] Blood VENOUS BLOOD / Unknown Venipuncture / Unknown 03/11/2024 10:20 PM EST 03/11/2024 10:22 PM EST Narrative [facility] - 03/12/2024 12:03 PM EST REFERENCE RANGE: Normal: 4.0-5.6% Pre-diabetes: 5.7-6.4% Provisional diagnosis of diabetes: >6.4% Hgb F>10% and anything which shortens red cell survival, such as hemolytic anemia, or unstable hemoglobin variants such as HbSS, HbSC, or HbCC, will lower the HbA1c value associated with a given level of glycemic control. us Foreign Meza MD CHEMISTRY ORDERABLES Final Result [facility] [address] [facility], [place] [address] [facility] [address] [facility] [place] [address] * COLONOSCOPY (09/23/2023 9:04 AM EDT) Anatomical Region Laterality Modality Endoscopy Narrative 09/23/2023 9:01 AM EDT Table formatting from the original result was not included. Findings External large hemorrhoids. Medium internal hemorrhoids. Otherwise normal colonoscopy Recommendation Repeat colonoscopy in 5 years, due: 09/21/2028 Recommend a high fiber diet. Recommend you start a daily fiber POWDER such as Benefiber, Metamucil or Citrucel. Please follow the surveillance investigator instructions for dosing guidelines. Work your way up to the suggested dosage. Pre-Procedure Diagnosis / Indication Epigastric abdominal pain, Family history of colon cancer, Encounter for colonoscopy due to history of colonic polyp, Gastroesophageal reflux disease with esophagitis without hemorrhage Post-Procedure Diagnosis Epigastric abdominal pain, Family history of colon cancer, Encounter for colonoscopy due to history of colonic polyp, Gastroesophageal reflux disease with esophagitis without hemorrhage Staff Staff Role Jacques Fatima MD Anesthesiologist [place], [employer] Mariposa Moya RN Automatic Seamer Komal Lan MD Performing Provider Sangeeta Tanner RN Endoscopy Nurse Medications See Anesthesia Record. Preprocedure A history and physical has been performed, and patient medication allergies have been reviewed. The patient's tolerance of previous anesthesia has been reviewed. The risks and benefits of the procedure and the sedation options and risks were discussed with the patient. All questions were answered and informed consent obtained. ASA 3 - Patient with severe systemic disease Details of the Procedure The patient underwent monitored anesthesia care, which was administered by an anesthesia professional. The patient's blood pressure, heart rate, level of consciousness, oxygen, respirations, ECG and ETCO2 were monitored throughout the procedure. A digital rectal exam was performed. The scope was introduced through the anus and advanced to the cecum. Retroflexion was performed in the rectum. Bowel prep was adequate. The patient experienced no blood loss. The procedure was not difficult. The patient tolerated the procedure well. There were no apparent adverse events. CO2 insufflation was used for the procedure. After withdrawing the scope to transverse colon, scope was reoriented and inserted back to the cecum and right colon was examined second time. Patient provided education and educated on specific discharge instructions. Patient educated on medications given during the procedure and new medications for discharge. Patient verbalizes understanding of discharge education. Patient stable and awaiting transport for discharge. Events Procedure Events Event Event Time ENDO SCOPE IN TIME 09/23/2023 8:43 AM ENDO CECUM REACHED 09/23/2023 8:47 AM ENDO SCOPE OUT TIME 09/23/2023 8:59 AM Specimens ID Type Source Tests Collected by Time 1 : gastric biopsy Tissue Gastric PATHOLOGY TISSUE REQUEST Komal Lan MD 09/23/2023 [id number] Anesthesia Event Time In Patient In - Proc. Room 08:25 AM Komal Lan MD ENDOSCOPY PROCEDURE ORDERABLES Final Result from Last 3 Months or Most Recently Relevant to Health Maintenance Insurance Advance Directives For more information, please contact: [phone] * Full Code (Latest Code Status on File) Date Activated Date Inactivated Comments 03/12/2024 4:23 AM 03/13/2024 7:14 PM * Full Code Date Activated Date Inactivated Comments 06/19/2021 5:16 PM 06/21/2021 7:40 PM * Full Code Date Activated Date Inactivated Comments 10/28/2018 12:22 AM 10/28/2018 10:47 PM Care Teams Boat Worker Relationship Specialty Start Date End Date Milo Koch MD [address] [place] [address] PCP - General Family Medicine 02/26/23 Eusebia Martinez MD [address] [place] [address] Physician Internal Medicine-Cardiovascular Disease 07/06/21 [place] [address] [place], [place] [id number] Internal Medicine-Nephrology 09/24/23 Parth Santos MD [address] [place] [address] Physician Otolaryngology 10/22/23
--- OUTSIDE RECORDS SUMMARY | 2024-10-09 10:23 | XMS_ITS | Encounter Summary ---
Author [place] [address] Care Team Providers Care Biztalk Consultant Name Role Phone Eusebia Martinez MD Unavailable [phone] Milo Koch MD Primary Care Provider [phone] Roosevelt Salazar Ud, MD Unavailable [phone] Ronnie Santos MD Unavailable [phone] Reason for Referral * Sleep Center (Routine) - Authorized Specialty Diagnoses / Procedures Referred By Contac t Referred To Contact Sleep Center Diagnoses Obstructive sleep apnea Procedures CPAP TITRATION MO POLYSOM 6/>YRS SLEEP W/CPAP 4/> ADDL SCOTT ATTND Emiliano Nicole MD [address] [address] Phone: tel: fax: [facility] Sleep Disorder Center [address] [place] [address] Phone: tel: fax: Referral ID Status Reason Start Date Expiration Date V isits Requested Visits Authorized [id number] Authorized 09/20/2024 09/20/2025 1 1 Encounter Details Date Type Department Care Team (Late st Contact Info) Description 09/20/2024 Orders Only [facility] Sleep Disorder Center [place] [address] [place] [address] Road [address] [place] [address] Emiliano Nicole MD [address] [facility] Building [address] [place] [address] Obstructive sleep apnea (Primary Dx) Social History Tobacco Use Types Packs/Day Years Used Date Smoking Tobacco: Every Day Cigarettes 1 32.6 Started: 03/10/1992 Smokeless Tobacco: Never Alcohol Use Standard Drinks/Week Comments Not Currently 0 (1 standard drink = 0.6 oz pur e alcohol) Quit 2020 [facility] Utilities Answer Date Recorded In the past 12 months has th e electric, gas, oil, or water company threatened to shut off services in your home? No 03/12/2024 Overall Financial Resource Strain (CARDIA) Answe r Date Recorded How hard is it for you to pa y for the very basics like food, housing, medical care, and heating? Not very hard 03/12/2024 PHQ-2 Answer Date Recorded PHQ-2 Total Score 0 03/12/2024 [facility] of Occupat ional Health - Occupational Stress [...] medical appointments or from getting medications? No 04/1 05/2021 In the past 12 months, has l ack of transportation kept you from meetings, work, or from getting things needed for daily living? No 06/20/2021 [facility] IP Transportation Answer D ate Recorded In [...] on file documented as of this encounter Functional Status * Is the person deaf or does he/she have serious difficulty hearing? Answer Date of Assessment Author No 10/28/2018 6:13 PM EDT Trinity Garcia RN * Is the person blind or does he/she have serious difficulty seeing even when wearing glasses? Answer Date of Assessment Author No 10/28/2018 6:13 PM EDT Trinity Broderick RN * Does this person have serious difficulty walking or climbing stairs? Answer Date of Assessment Author No 10/28/2018 6:13 PM EDT Trinity Broderick RN * Does this person have difficulty dressing or bathing? Answer Date of Assessment Author No 10/28/2018 6:13 PM EDT Trinity Broderick RN * Because of a physical, mental or emotional condition, does this person have difficulty doing errands alone such as visiting a doctor's office or shopping? Answer Date of Assessment Author No 10/28/2018 6:13 PM EDT Trinity Broderick RN documented as of this encounter Mental Status * Because of a physical, mental or emotional condition, does this person have serious difficulty concentrating, remembering or making decisions? Answer Entry Date Author No 10/28/2018 6:13 PM EDT Trinity Broderick RN documented in this encounter Plan of Treatment Upcoming Encounters Date Type Department Care Team (Late st Contact Info) Description 11/01/2024 7:00 PM EDT Appointment [facility] [place] [address] 12/21/2024 10:30 AM EDT Office Visit [facility] [address] [phone] Page Mccormick APRN [address] [address] Scheduled Orders Name Type Priority Associated Diagnoses Orde r Schedule CPAP TITRATION Sleep Center Routine Obstructive sleep apnea 1 Occurrences starting 09/20/2024 until 09/20/2025 documented as of this encounter Goals Goal Patient Goal Type Associated Problems Recent Progress Patient-Stated? Author Blood Pressure < 140/90 Blood Pressure 153/71(2024 11:49 AM EST) No Marci Conley RMJonathan Maintain a healthy diet, exercise regularly and maintain an ideal body weight General No Annie Vogel RMA Stay Tobacco Free Lifestyle No Annie Vogel RMA documented as of this encounter Visit Diagnoses Diagnosis Obstructive sleep apnea- Primary Obstructive sleep apnea (adult) (pediatric) documented in this encounter Care Teams Biztalk Consultant Relationship Specialty Start Date End Date Milo Koch MD [address] [place] [address] PCP - General Family Medicine 02/26/23 Eusebia Martinez MD [address] [place] [address] Physician Internal Medicine-Cardiovascular Disease 07/06/21 Roosevelt Salazar Ud, MD [address] [place] [address] Internal Medicine-Nephrology 09/24/23 Ronnie Santos MD [address] [place] [address] Physician Otolaryngology 10/22/23 documented as of this encounter
--- OUTSIDE RECORDS SUMMARY | 2024-10-09 10:23 | XMS_ITS | Encounter Summary ---
Author Organization [facility] Address [address] [place] [address] Care Team Providers Care Field Agronomist Name Role Phone Eusebia Martinez MD Unavailable [phone] Milo Koch MD Primary Care Provider [phone] Roosevelt Salazar Ud, MD Unavailable [phone] Ronnie Santos MD Unavailable [phone] Reason for Visit * Reason Comments Medication Refill Encounter Details Date Type Department Care Team (Late st Contact Info) Description 08/17/2024 Refill [facility] [address] [place], [place] [id number] Roosevelt Salazar Ud, MD [address] [place], [place] [id number] Medication Refill Social History Tobacco Use Types Packs/Day Years Used Date Smoking Tobacco: Every Day Cigarettes 1 32.6 Started: 03/10/1992 Smokeless Tobacco: Never Alcohol Use Standard Drinks/Week Comments Not Currently 0 (1 standard drink = 0.6 oz pur e alcohol) Quit 2020 [facility] Utilities Answer Date Recorded In the past 12 months has [employer], gas, oil, or water company threatened to shut off services in your home? No 03/12/2024 Overall Financial Resource Strain (CARDIA) Answe r Date Recorded How hard is it for you to pa y for the very basics like food, housing, medical care, and heating? Not very hard 03/12/2024 PHQ-2 Answer Date Recorded PHQ-2 Total Score 0 03/12/2024 [facility] of Occupat ional Health - Occupational Stress [...] things needed for daily living? No 06/20/2021 [facility] IP Transportation Answer D ate Recorded In [...] 6:13 PM EDT Trinity Broderick RN * Is the person blind or [...] Trinity Broderick RN documented in this encounter Ordered Prescriptions Prescription Sig Dispense Quantity Refills Last Filled Start Date End Date VITAMIN D 1,250 mcg (50,000 unit) Oral Capsule TAKE 1 CAPSULE BY MOUTH ONCE WEEKLY 12 Capsule 11 08/18/2024 documented in this encounter Plan of Treatment Upcoming Encounters Date Type Department Care Team (Late st Contact Info) Description 11/01/2024 7:00 PM EDT Appointment [facility] Sleep Disorder Center [place] [id number] 12/21/2024 10:30 AM EDT Office Visit [facility] Sleep Medicine [facility] [address] [phone] Page Mccormick APRN [address] [address] documented as of this encounter Goals Goal Patient Goal Type Associated Problems Recent Progress Patient-Stated? Author Blood Pressure < 140/90 Blood Pressure 153/71(2024 11:49 AM EST) No Marci Conley, JENNIFER Maintain a healthy diet, exercise regularly and maintain an ideal body weight General No Annie Vogel RMA Stay Tobacco Free Lifestyle No Annie Vogel RMA documented as of this encounter Visit Diagnoses Not on filedocumented in this encounter Discontinued Medications Medication Sig Discontinue Reason Start Date End Da te ergocalciferol (VITAMIN D) 1,250 mcg (50,000 unit) Oral Capsule Take 1 Capsule by mouth once a week. 01/19/2024 08/18/2024 documented as of this encounter Care Teams Field Agronomist Relationship Specialty Start Date End Date Milo Koch MD [address] [place] [address] PCP - General Family Medicine 02/26/23 Eusebia Martinez MD [address] [place] [address] Physician Internal Medicine-Cardiovascular Disease 07/06/21 Roosevelt Salazar Ud, MD [address] [place] [address] Internal Medicine-Nephrology 09/24/23 Ronnie Santos MD [address] [place] [address] Physician Otolaryngology 10/22/23 documented as of this encounter
--- OUTSIDE RECORDS SUMMARY | 2024-10-09 10:23 | XMS_ITS | Encounter Summary ---
Author Organization [place] [address] Care Team Providers Care Slip Maker Name Role Phone Rickey Contreras MD Primary Care Provider Veronica Wilson RN Unavailable Unavaila ble Eusebia Martinez MD Unavailable [phone] Milo Koch MD Primary Care Provider [phone] Roosevelt Salazar Ud, MD Unavailable [phone] Ronnie Santos MD Unavailable [phone] Encounter Details Date Type Department Care Team (Late st Contact Info) Description 02/27/2018 Lab [facility] [place] [address] Komal Lan MD [address] [place] [address] Family history of malignant neoplasm of digestive organ; Benign neoplasm of ascending colon; Benign neoplasm of sigmoid colon Social History Tobacco Use Types Packs/Day Years [...] Info) Description 11/01/2024 7:00 PM EDT Appointment [facility] Sleep Disorder Center [place] [phone] [address] 12/21/2024 10:30 AM EDT Office Visit [facility] Sleep Medicine [facility] 651 [facility] [address] [place] [phone] Mccormick Page Castillo, [employer]IVER [address] [place] [phone] documented as of this encounter Goals Goal Patient Goal Type Associated Problems Recent Progress Patient-Stated? Author Maintain a healthy diet, exercise regularly and maintain an ideal body weight General No Annie Vogel RMA Stay Tobacco Free Lifestyle No Annie Vogel RMA documented as of this encounter Procedures Procedure Name Priority Date/Time Associated Diagnosis Comments PATHOLOGY TISSUE REQUEST Routine 02/27/2018 2:00 PM EST Family history of malignant neoplasm of digestive organ Benign neoplasm of ascending colon Benign neoplasm of sigmoid colon documented in this encounter Results * PATHOLOGY TISSUE REQUEST (02/27/2018 2:00 PM EST) CASE REPORT Surgical Pathology Case: [id number] Authorizing Provider: Komal Lan, Collected: 02/27/2018 1400 Pathologist: Lesia Sampson MD Received: 02/27/2018 1806 Specimens: A) - Large Intestine, Right/Ascendin g Colon, ascending B) - Large Intestine, Sigmoid Colon, sigmoid 03/02/2018 12:14 PM EST [facility] CLINICAL HISTORY Family history of colon cancer. 03/02/2018 12:14 PM EST [facility] FINAL DIAGNOSIS A) Ascending colon polyp, biopsy: - Sessile serrated polyp/adenoma. B) Sigmoid colon polyp, biopsy: - Tubular adenoma. 03/02/2018 12:14 PM EST [facility] at 1214 EST COMMENT 03/02/2018 12:14 PM EST [facility] GROSS DESCRIPTION Part A) Received in formalin labeled with the patient s name and ascending colon polyp are 4 fragments of green tissue ranging from 0.2 to 0.5 cm in greatest dimension. Entirely submitted in one cassette. /ZN Part B) Received in formalin labeled with the patient s name and sigmoid colon polyp are 2 fragments of green tissue ranging from 0.4 to 0.5 cm in greatest dimension. Entirely submitted in one cassette. /ZN 03/02/2018 12:14 PM EST [facility] MICROSCOPIC DESCRIPTION Microscopic examination is performed and the findings corroborate the diagnosis. 03/02/2018 12:14 PM EST [facility] SPECIAL STAINS 03/02/2018 12:14 PM EST [facility] EMBEDDED IMAGES 03/02/2018 12:14 PM EST [facility] Tissue SIGMOID COLON STRUCTURE / Unknown 02/27/2018 2:00 PM EST 02/27/2018 6:06 PM EST Tissue specimen (specimen) SIGMOID COLON STRUCTURE / Unknown 02/27/2018 2:00 PM EST 02/27/2018 6:06 PM EST us Komal Lan MD PATHOLOGY ORDERABLES Final Result Performing Organization Address City/State/[facility] Co de Phone Number [facility] [address] [place] [address] documented in this encounter Visit Diagnoses Diagnosis Family history of malignant neoplasm of digestive organ Family history of malignant neoplasm of gastrointestinal tract Benign neoplasm of ascending colon Benign neoplasm of colon Benign neoplasm of sigmoid colon Benign neoplasm of colon documented in this encounter Additional Health Concerns Infection Onset Date Last Indicated Resolved Time R/O COVID-19 06/19/2021 06/19/2021 06/19/2021 2:07 PM EDT documented as of this encounter Care Teams Slip Maker Relationship Specialty Start Date End Date Rickey Contreras MD [address] [place] [phone] PCP - General Family Medicine 11/17/17 02/25/23 Milo Koch MD [address] [place] [address] PCP - General Family Medicine 02/26/23 Veronica Wilson, RN [employer]quet [employer] Server Registered Nurse 06/22/21 06/24/21 Eusebia Martinez MD [address] [place] [address] Physician Internal Medicine-Cardiovascular Disease 07/06/21 Roosevelt Salazar Ud, MD [address] [place] [address] Internal Medicine-Nephrology 09/24/23 Ronnie Santos MD [address] [place] [address] Physician Otolaryngology 10/22/23 documented as of this encounter
== END 2024-10-08 23:59 | disposition home or self-care (01) ==
LOC: LAB.DROPOF 10-09 10:21
PROVIDERS: PCP Family Medicine; Visit Provider Family Medicine
DX: E03.9 Hypothyroidism, unspecified (principal); E11.9 Type 2 diabetes mellitus without complications; I10 Essential (primary) hypertension
CPT/HCPCS: 80053; 80061; 82043; 82570; 84443; 85025

== ENCOUNTER 2024-11-04 10:00 | Outpatient (CLI) | payer MEDICAID, SELFPAY ==
--- OUTSIDE RECORDS SUMMARY | 2024-11-01 19:00 | XMS_ITS | Encounter Summary ---
Author Organization [place] [address] Care Team Providers Care Director Of Channel Marketing Name Role Phone Eusebia Martinez MD Unavailable [phone] Milo Koch MD Primary Care Provider [phone] Roosevelt Salazar Ud, MD Unavailable [phone] Ronnie Santos MD Unavailable [phone] Reason for Referral * Sleep Center (Routine) - Closed Specialty Diagnoses / Procedures Referred By Contac t Referred To Contact Sleep Center Diagnoses Obstructive sleep apnea Procedures CPAP TITRATION NM POLYSOM 6/>YRS SLEEP W/CPAP 4/> ADDL SCOTT ATTND Emiliano Nicole MD [address] [facility] [address] [place] [address] Phone: tel: fax: [facility] Sleep Disorder Center [address] [place] [address] Phone: tel: fax: Referral ID Status Reason Start Date Expiration Date Visits Re quested Visits Authorized [id number] Closed 09/20/2024 09/20/2025 1 1 Reason for Visit * Reason Comments Sleep Apnea * Sleep Center (Routine) - Closed Specialty Diagnoses / Procedures Referred By Contac t Referred To Contact Sleep Center Diagnoses Obstructive sleep apnea Procedures CPAP TITRATION NM POLYSOM 6/>YRS SLEEP W/CPAP 4/> ADDL SCOTT Emiliano Ashley MD [address]51 [facility] Building [address] [place] [phone] Phone: tel: fax: [facility] Sleep Disorder Center [address] [place], [place] [address] Phone: tel: fax: Referral ID Status Reason Start Date Expiration Date Visits Re quested Visits Authorized [id number] Closed 09/20/2024 09/20/2025 1 1 Encounter Details Date Type Department Care Team (Latest Contact Info) Description 11/01/2024 7:00 PM EDT - 11/01/2024 11:59 PM EDT Hospital Encounter [facility] Sleep Disorder Center [address] [place] [address] Obstructive sleep apnea Discharge Disposition: Home or Self Care Social History Tobacco Use Types Packs/Day Years Used Date Smoking Tobacco: Every Day Cigarettes 1 32.7 Started: 03/10/1992 Smokeless Tobacco: Never Alcohol Use Standard Drinks/Week Comments Not Currently 0 (1 standard drink = 0.6 oz pur e alcohol) Quit 2020 [facility] Utilities Answer Date Recorded In the past 12 months has [employer], gas, oil, or water [employer] threatened to shut off services in your home? No 03/12/2024 Overall Financial Resource Strain (CARDIA) Answe r Date Recorded How hard is it for you to pa y for the very basics like food, housing, medical care, and heating? Not very hard 03/12/2024 PHQ-2 Answer Date Recorded PHQ-2 Total Score 0 03/12/2024 [facility] [place] of Occupat ional Health - Occupational Stress [...] things needed for daily living? No [facility] IP Transportation Answer D ate Recorded In [...] Author No 10/28/2018 6:13 PM EDT Trinity Broderick, RN * Does this person have serious difficulty walking or climbing stairs? Answer Date of Assessment Author No 10/28/2018 6:13 PM EDT Trinity Broderick, RN * Does this person have difficulty dressing or bathing? Answer Date of Assessment Author No 10/28/2018 6:13 PM EDT Trinity Broderick, RN * Because of a physical, mental or emotional condition, does this person have difficulty doing errands alone such as visiting a doctor's office or shopping? Answer Date of Assessment Author No 10/28/2018 6:13 PM EDTrinity Bone RN documented as of this encounter Mental Status * Because of a physical, mental or emotional condition, does this person have serious difficulty concentrating, remembering or making decisions? Answer Entry Date Author No 10/28/2018 6:13 PM EDTrinity Bone RN documented in this encounter Medications at Time of Discharge acetaminophen Oral tablet Take by mouth every 6 hours as needed for Pain (Pulled muscle in neck). Alcohol Swabs Top Pads, Medicated Prepare site by wiping skin vigorously prior to testing blood glucose or injecting insulin. 200 Each 03/13/2024 aspirin 81 mg Oral Tablet, Delayed Release (E.C.) Take 81 mg by mouth daily. atorvastatin (LIPITOR) 40 mg Oral TabletIndication s:ASHD (arterioscleroti c heart disease),S/P coronary artery stent placement Take 1 Tablet by mouth nightly. 03/13/2024 Blood Sugar Diagnostic [facility] Strip Test blood sugar 3 times per day 50 Each 03/13/2024 Blood-Glucose Meter [facility] Use as directed for blood glucose monitoring 1 Each 03/13/2024 bumetanide (BUMEX) 2 mg Oral Tablet Take 1 Tablet by mouth daily as needed. 30 Tablet 3 09/24/2023 fenofibrate (TRICOR) 145 mg Oral Tablet Take 145 mg by mouth daily. 12/20/2022 insulin syr/ndl U100 half miranda 0.3 mL 31 gauge x 15/64 [facility] Syringe 1 Syringe by [facility].(Non-Drug; Combo Route) route 4 times daily. 100 Each 03/13/2024 Lancets [facility] Mis Test blood sugar 3 times per day 200 Each 03/13/2024 metoprolol succinate ER (TOPROL-XL) 100 mg Oral Tablet Sustained Release 24 hr Take 100 mg by mouth daily. NIFEdipine (PROCARDIA XL) 60 mg Oral Tablet Extended Rel 24 hr Take 1 Tablet by mouth daily. 30 Tablet 11 09/17/2023 Olopatadine 0.6 % Nasl [place], Non-AerosolIndic ations:Dysfuncti on of both eustachian tubes 2 Sprays by Nasal route daily. 30.5 g 5 10/27/2023 omeprazole (PRILOSEC) 40 mg Oral Capsule, Delayed Release(E.C.) Take 1 Cap by mouth 2 times daily. 60 Cap 2 09/20/2019 spironolactone (ALDACTONE) 50 mg Oral Tablet TAKE 1 TABLET ORALLY TWICE A DAY ticagrelor (BRILINTA) 90 mg Oral Tablet Take 90 mg by mouth 2 times daily. VITAMIN D 1,250 mcg (50,000 unit) Oral Capsule TAKE 1 CAPSULE BY MOUTH ONCE WEEKLY 12 Capsule 11 08/18/2024 documented as of this encounter Discharge Disposition Disposition Code Departure Means Destination Home or Self Care documented in this encounter Plan of Treatment Upcoming Encounters Date Type Department Care Team (Late st Contact Info) Description 12/21/2024 10:30 AM EDT Office Visit [facility] Sleep Medicine [facility] [address] [phone] Page Mccormick APRN [address] [address] Scheduled Orders Name Type Priority Associated Diagnoses Orde r Schedule NM POLYSOM 6/>YRS SLEEP W/CPAP 4/> ADDL SCOTT ATTND NM Charge Routine Obstructive sleep apnea Ordered: 11/01/2024 documented as of this encounter Goals Goal [...] Procedure Name Priority Date/Time Associated Diagnosis Comments CPAP TITRATION Routine 11/01/2024 9:18 AM EDT Obstructive sleep apnea documented in this encounter Results * CPAP TITRATION (11/01/2024 9:18 AM EDT) [facility] OVERALL RESULT [facility] DATE OF STUDY 11/01/2024 [facility] Study Type Adult SE LAB PATIENT WEIGHT 243.0 SE LAB APNEA INDEX 13.3 SE LAB Apnea Hypopnea Index 51.3 SE LAB RDI Index 51.3 SE LAB Central Apnea Index 8.4 SE LAB REM AHI SE LAB Min O2 Saturation 85 SE LAB RDI REM SE LAB RDI nonREM 49.2 SE LAB CPAP Device Name SE LAB CPAP Pressure SE LAB IPAP Pressure SE LAB EPAP Pressure [facility] Auto Pressure Support SE LAB Supplemental O2 [facility] Mask Type F20 SE LAB Mask Size medium SE LAB APAP Range SE LAB Auto-IPAP Max SE LAB Auto-IPAP Min SE LAB Pressure Support SE LAB PAP Compliance % SE LAB Compliance Days SE LAB Residual AHI [facility] PAP 90-95th Percentile [facility] 11/01/2024 9:18 AM EDT us Emiliano Nicole MD SLEEP CENTER ORDERABLES Final Re sult [facility] [address] [place] [address] documented in this encounter Visit Diagnoses Diagnosis Obstructive sleep apnea Obstructive sleep apnea (adult) (pediatric) documented in this encounter Care Teams Director Of Channel Marketing Relationship Specialty Start Date End Date Milo Koch MD [address] [place] [address] PCP - General Family Medicine 02/26/23 Eusebia Martinez MD [address] [place] [address] Physician Internal Medicine-Cardiovascular Disease 07/06/21 Roosevelt Salazar Ud, MD [address] [place] [address] Internal Medicine-Nephrology 09/24/23 Ronnie Santos MD [address] [place] [address] Physician Otolaryngology 10/22/23 documented as of this encounter
[2024-11-04 16:26] LABS: Chloride 110 mmol/L (98-107); Sodium 138 mmol/L (136-145)
[2024-11-04 16:27] LABS: Potassium 4.2 mmoL/L (3.5-5.1)
[2024-11-04 16:30] LABS: Anion Gap 10.2 mEq/L (5-15); Blood Urea Nitrogen 19 mg/dl (9-20); Calcium 8.7 mg/dl (8.4-10.2); Carbon Dioxide 22 mmol/L (22.0-30.0); Creatinine,Serum 1.00 mg/dl (0.66-1.25); Estimated Glomerular Filt Rate 80 ml/min (>60); GFR (African American) 97 ML/MIN (>60); Glucose 136 mg/dl (74-100)
[2024-11-04 16:43] LABS: NT Pro Brain Natriuretic Pep. < 20.0 pg/mL (0-125)
--- OUTSIDE RECORDS SUMMARY | 2024-11-05 11:27 | XMS_ITS | Clinical Summary ---
Author Organization [employer] [facility] are Address [address] [place] [address] Phone Care Team Providers Care Territory Supervisor Name Role Phone Hayley Guillermo APRN Primary Care Physician [phone] [ ] Conditions or Problems No information available. Medications No information available. Medications Administered No information available. Allergies, Adverse Reactions, Alerts No information available. Results No information available. Plan of Care No information available. Procedures No information available. Vital Signs No information available. Immunizations No information available. Advance Directives No information available.
--- OUTSIDE RECORDS SUMMARY | 2024-11-05 11:28 | XMS_ITS | Encounter Summary ---
Author Organization [facility] [place] [address] Care Team Providers Care Tractor Sweeper Operator Name Role Phone Rickey Contreras MD Primary Care Provider Veronica Wilson RN Unavailable Unavaila ble Eusebia Martinez MD Unavailable [phone] Milo Koch MD Primary Care Provider [phone] Roosevelt Salazar Ud, MD Unavailable [phone] Ronnie Santos MD Unavailable [phone] Encounter Details Date Type Department Care Team (Late st Contact Info) Description 02/27/2018 Orders Only SEP Gastro [facility] [address] [facility] [address] [place] [address] Komal Lan MD [address] [place] [address] Social History Tobacco Use Types Packs/Day Years [...] Office Visit SEP Sleep Medicine [facility] [address] [phone] Page Mccormick, PATIENT REGISTRATION SPECIALIST [address] [address] documented as of this encounter Goals Goal [...] PM EST) 02/27/2018 2:[address] [facility] - 03/06/2018 7:12 AM EST Polyp [...] PROCEDURE ORDERAB LES Edited Result - Final [facility] 1 [place] [address] documented in this encounter Visit Diagnoses Not on filedocumented in this encounter Additional Health Concerns Infection Onset Date Last Indicated Resolved Time R/O COVID-19 06/19/2021 06/19/2021 06/19/2021 2:07 PM EDT documented as of this encounter Care Teams Tractor Sweeper Operator Relationship Specialty Start Date End Date Rickey Contreras MD [address] [place] [phone] PCP - General Family Medicine 11/17/17 02/25/23 Milo Koch MD [address] [place] [address] PCP - General Family Medicine 02/26/23 Veronica Wilson, RN Field Sales Trainer Registered Nurse 06/22/21 06/24/21 Eusebia Martinez MD [address] [place] [address] [phone] Physician Internal Medicine-Cardiovascular Disease 07/06/21 [place] [address] [place] [address] Internal Medicine-Nephrology 09/24/23 Ronnie Santos MD [address] [place] [address] Physician Otolaryngology 10/22/23 documented as of this encounter
--- OUTSIDE RECORDS SUMMARY | 2024-11-05 11:28 | XMS_ITS | Encounter Summary ---
Author Organization [place] [address] Care Team Providers Care Movie Theater Usher Name Role Phone Eusebia Martinez MD Unavailable [phone] Milo Koch MD Primary Care Provider [phone] Roosevelt Salazar Ud, MD Unavailable [phone] Ronnie Santos MD Unavailable [phone] Reason for Referral * Durable Medical Equipment (Routine) - Pending Review Specialty Diagnoses / Procedures Referred By Contac t Referred To Contact Diagnoses Obstructive sleep apnea Procedures AMB SEP CPAP DME Emiliano Nicole MD [address] [place] [phone] Phone: tel: fax: Referral ID Status Reason Start Date Expiration Date V isits Requested Visits Authorized [id number] Pending Review 11/02/2024 11/02/2025 1 1 Encounter Details Date Type Department Care Team (Late st Contact Info) Description 11/02/2024 Orders Only [facility] Sleep Disorder Center [address] [place], [place] [phone] Emiliano Nicole MD 651 [facility] Building [address] [place] [phone] Obstructive sleep apnea (Primary Dx) Social History Tobacco Use Types Packs/Day Years Used Date Smoking Tobacco: Every Day Cigarettes 1 32.7 Started: 03/10/1992 Smokeless Tobacco: Never Alcohol Use Standard Drinks/Week Comments Not Currently 0 (1 standard drink = 0.6 oz pur e alcohol) Quit 2020 [facility] Utilities Answer Date Recorded In the past [...] Date Recorded PHQ-2 Total Score 0 03/12/2024 [facility] - Occupational Stress [...] needed for daily living? No 06/20/2021 [facility] IP Transportation Answer D ate Recorded [...] Office Visit [facility] Sleep Medicine [facility] [address] [phone] Pgae Mccormick APRN [address] [address] documented as of this encounter Goals Goal [...] apnea (adult) (pediatric) documented in this encounter Orders Nursing Count Last Ordered Date First Orde red Date AMB SEP CPAP DME 1 11/02/2024 documented in this encounter Care Teams Movie Theater Usher Relationship Specialty Start Date End Date Milo Koch MD 1 [place] [address] PCP - General Family Medicine 02/26/23 Eusebia Martinez MD 1 [place] [address] Physician Internal Medicine-Cardiovascular Disease 07/06/21 [place] [address] [place] [address] Internal Medicine-Nephrology 09/24/23 Ronnie Santos MD [address] [place] [address] Physician Otolaryngology 10/22/23 documented as of this encounter
--- OUTSIDE RECORDS SUMMARY | 2024-11-05 11:28 | XMS_ITS | Encounter Summary ---
Author Organization [place] [address] Care Team Providers Care Shade Cutter Name Role Phone Rickey Contreras MD Primary Care Provider Veronica Wilson RN Unavailable Unavaila ble Eusebia Martinez MD Unavailable [phone] Milo Koch MD Primary Care Provider Roosevelt Salazar Ud, MD Unavailable [phone] Ronnie Santos MD Unavailable [phone] Encounter Details Date Type Department Care Team (Late st Contact Info) Description 02/27/2018 Lab Requisition [facility] [place] [address] Komal Lan MD [address] [place] [address] Family history of malignant neoplasm of digestive [...] Office Visit SEP Sleep Medicine [facility] [address] [phone] Page Mccormick, RECRUITMENT AND OUTREACH ASSISTANT [address] [address] documented as of this encounter Goals Goal [...] PM EST) CASE REPORT Surgical Pathology Case: [id number] Authorizing Provider: Komal Lan, Collected: 02/27/2018 1400 Pathologist: Lesia Sampson MD Received: 02/27/2018 5296 Specimens: A) - Large Intestine, Right/Ascendin g Colon, ascending B) - Large Intestine, Sigmoid Colon, sigmoid 03/02/2018 12:14 PM EST [facility] CLINICAL HISTORY Family history of colon cancer. 03/02/2018 12:14 PM EST [facility] FINAL DIAGNOSIS A) Ascending colon polyp, biopsy: - Sessile serrated polyp/adenoma. B) Sigmoid colon polyp, biopsy: - Tubular adenoma. 03/02/2018 12:14 PM EST [facility] at 1214 EST COMMENT 03/02/2018 12:14 PM EST [facility] GROSS DESCRIPTION Part A) Received in [...] one cassette. /ZN 03/02/2018 12:14 PM EST [facility] MICROSCOPIC DESCRIPTION Microscopic examination is performed and the findings corroborate the diagnosis. 03/02/2018 12:14 PM EST [facility] SPECIAL STAINS 03/02/2018 12:14 PM EST [facility] EMBEDDED IMAGES 03/02/2018 12:14 PM EST [facility] Tissue SIGMOID COLON STRUCTURE / Unknown 02/27/2018 2:00 PM EST 02/27/2018 6:06 PM EST Tissue specimen (specimen) SIGMOID COLON STRUCTURE / Unknown 02/27/2018 2:00 PM EST 02/27/2018 6:06 PM EST Komal Lan MD PATHOLOGY ORDERABLES Final Result [facility] [address] [place] [address] documented in this encounter Visit Diagnoses Diagnosis [...] documented as of this encounter Care Teams Shade Cutter Relationship Specialty Start Date End Date Rickey Contreras MD [address] [place] [phone] PCP - General Family Medicine 11/17/17 02/25/23 Milo Koch MD [address] [place] [address] PCP - General Family Medicine 02/26/23 Veronica Wilson, RN Industrial Tech Instructor Registered Nurse 06/22/21 06/24/21 Eusebia Martinez MD [address] [place], [place] [phone] Physician Internal Medicine-Cardiovascular Disease 07/06/21 [place] [address] [place] [address] Internal Medicine-Nephrology 09/24/23 Ronnie Santos MD [address] [place], [place] [phone] Physician Otolaryngology 10/22/23 documented as of this encounter
--- OUTSIDE RECORDS SUMMARY | 2024-11-05 11:28 | XMS_ITS | Encounter Summary ---
Author Organization [place] [address] Care Team Providers Care Family Specialist Name Role Phone Eusebia Martinez MD Unavailable [phone] Milo Koch MD Primary Care Provider [phone] Roosevelt Salazar Ud, MD Unavailable [phone] Ronnie Santos MD Unavailable [phone] Reason for Referral * Sleep Center (Routine) - Closed Specialty Diagnoses / Procedures Referred By Contac t Referred To Contact Sleep Center Diagnoses Obstructive sleep apnea Procedures CPAP TITRATION [place] POLYSOM 6/>YRS SLEEP W/CPAP 4/> ADDL [place]OTT ATTND Emiliano Nicole MD [address] [phone] Phone: tel: fax: [facility] Sleep Disorder Center [address] [place] [address] Phone: tel: fax: Referral ID Status Reason Start Date Expiration Date Visits Re quested Visits Authorized [id number] Closed 09/20/2024 09/20/2025 1 1 Encounter Details Date Type Department Care Team (Late st Contact Info) Description 09/20/2024 Orders Only [facility] Sleep Disorder Center [place] [address] [place] [address] Road [address] [place] [address] Emiliano Nicole MD [address] [facility] [address] [place] [address] Obstructive sleep apnea (Primary Dx) Social History Tobacco Use Types Packs/Day Years Used Date Smoking Tobacco: Every Day Cigarettes 1 32.7 Started: 03/10/1992 Smokeless Tobacco: Never Alcohol Use Standard Drinks/Week Comments Not Currently 0 (1 standard drink = 0.6 oz pur e alcohol) Quit 2020 [facility] Utilities Answer Date Recorded In the [...] Date Recorded PHQ-2 Total Score 0 03/12/2024 [facility] [place] of Occupat ional Health - Occupational Stress [...] things needed for daily living? No 06/20/2021 [facility] IP Transportation Answer D ate Recorded In [...] AM EDT Office Visit SEP Sleep Medicine [facility] [address] [phone] Jace Page Castillo, NUCLEAR EQUIPMENT SALES ENGINEER 651 [facility] [address] [place] [address] documented as of this encounter Goals Goal Patient Goal Type Associated Problems Recent Progress Patient-Stated? Author Blood Pressure < 140/90 Blood Pressure 153/71(2024 11:49 AM EST) No Marci Conley RMJonathan Maintain a healthy diet, exercise regularly and maintain an ideal body weight General No Annie Vogel RMA Stay Tobacco Free Lifestyle No Annie Vogel RMJonathan documented as of this encounter Results * CPAP TITRATION (11/01/2024 9:18 AM EDT) [facility] OVERALL RESULT [facility] DATE OF STUDY 11/01/2024 SE LAB Study Type Adult SE LAB PATIENT WEIGHT 243.0 SE LAB APNEA INDEX 13.3 SE LAB Apnea Hypopnea Index 51.3 SE LAB RDI Index 51.3 [facility] Central Apnea Index 8.4 [facility] REM AHI [facility] Min O2 Saturation 85 [facility] RDI REM [facility] RDI nonREM 49.2 [facility] CPAP Device Name [facility] CPAP Pressure [facility] IPAP Pressure [facility] EPAP Pressure [facility] Auto Pressure Support [facility] Supplemental O2 [facility] Mask Type F20 SE LAB Mask Size medium SE LAB APAP Range [facility] Auto-IPAP Max [facility] Auto-IPAP Min [facility] Pressure Support [facility] PAP Compliance % SE LAB Compliance Days [facility] Residual AHI [facility] PAP 90-95th Percentile [facility] 11/01/2024 9:18 AM EDT us Emiliano Nicole MD SLEEP CENTER ORDERABLES Final Re sult [facility] [address] [place] [address] documented in this encounter Visit Diagnoses Diagnosis Obstructive sleep apnea- Primary Obstructive sleep apnea (adult) (pediatric) documented in this encounter Care Teams Family Specialist Relationship Specialty Start Date End Date Milo Koch MD [address] [place] [address] PCP - General Family Medicine 02/26/23 Eusebia Martinez MD [address] [place] [address] Physician Internal Medicine-Cardiovascular Disease 07/06/21 Roosevelt Salazar Ud, MD [address] [place] [address] Internal Medicine-Nephrology 09/24/23 Ronnie Santos MD [address] [place] [address] Physician Otolaryngology 10/22/23 documented as of this encounter
--- OUTSIDE RECORDS SUMMARY | 2024-11-05 11:28 | XMS_ITS | Clinical Summary ---
Author Organization [facility] OM Address [address] [address] Phone Care Team Providers Care Refrigerator Mover Name Role Phone Eusebia Martinez MD Unavailable [phone] Milo Koch MD Primary Care Provider [phone] Roosevelt Salazar Ud, MD Unavailable [phone] Parth Santos MD Unavailable [phone] Allergies No known active allergies Medications acetaminophen [...] 3 4 Active Olopatadine 0.6 % Nasl [place], Non-AerosolIndi cations:Dysfunc tion of both eustachian tubes [...] day 50 Each 5 Active Blood-Glucose Meter [facility] Use as directed for blood glucose monitoring 1 Each 5 Active insulin syr/ndl U100 half miranda 0.3 mL 31 gauge x 15/64 Misc Syringe 1 Syringe by [facility]Non-Drug; Combo Route) route 4 times daily. 100 Each 5 Active Lancets [facility] Test blood sugar 3 times per day 200 Each 5 Active VITAMIN D 1,250 mcg (50,000 unit) Oral Capsule TAKE 1 CAPSULE BY MOUTH ONCE WEEKLY 12 Capsule 11 5 Active Active Problems Patient Care Coordination No te Formatting of this note migh t be different from the original. 10/25/19 no show warning letter sent SEP Vera Trujillo 07/20/21 no show warning letter sent [facility] Parth Care gap audit completed by Sharlene Doyle RN on 03/13/2023. [facility]: [facility] EQUIPMENT LEAD Appt 03/13/23 and NS EQUIPMENT LEAD Appt 03/27/23 Problem Noted Date Diagnosed Date [...] meals and medium sliding scale. Diabetic diet. certified breastfeeding educator. Assessment & Plan (03/12/2024 2:15 PM EST): Newly diagnosed. A1c ordered and personally reviewed noted to be 16.9. Labs are reassuring for DKA. No evidence of infection. Status post IV insulin. Start insulin. Continue with aggressive IV fluid hydration. Started on Lantus 23 units twice daily, 5 units 3 times daily and high sliding scale. Hypoglycemic protocol in place. Diabetic diet. certified breastfeeding educator. 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 Hold REPLENISHER medications Assessment & Plan (03/12/2024 2:15 PM EST): Monitored by outpatient nephrology. Hold REPLENISHER medications Mixed conductive and sensori neural hearing loss of left ear with restricted hearing of right ear 09/22/2019 Sensorineural hearing loss ( SNHL) of right ear with restricted hearing of left ear 09/22/2019 Middle ear effusion, left 09/22/2019 Annual physical exam 12/07/2018 Hypertension associated with diabetes 12/07/2018 Assessment & Plan (03/13/2024 5:54 PM EST): Resume REPLENISHER metoprolol, nifedipine, Aldactone and Bumex on discharge [...] Encounters Date Type Department Care Team Description 11/02/2024 Orders Only [facility] Sleep Disorder [address] [address] Emiliano Nicole MD Obstructive sleep apnea (Primary Dx) 11/01/2024 7:00 PM EDT - 11/01/2024 11:59 PM EDT Hospital Encounter [facility] Sleep Disorder [address] [address] Obstructive sleep apnea Discharge Disposition: Home or Self Care 09/20/2024 Orders Only [facility] Sleep Disorder [address] [address] Emiliano Nicole MD Obstructive sleep apnea (Primary Dx) 08/17/2024 Refill [facility] [address] [facility] [place] [id number] Roosevelt Salazar Ud, MD Medication Refill from Last 3 Months Immunizations Immunization Administration Dates Next Due Influenza Vaccine Quadrivalent 12/07/2018 Influenza Vaccine Quadrivalent PF 01/04/2020,12/2017 Influenza Vaccine, Unspecified Formulation 02/25 Pneumococcal Polysaccharide 23 Valent 11/17/2017 Tdap 11/17/2017 Surgical History Surgery Date Site/Laterality Comments TONSILLECTOMY UPPER GASTROINTESTINAL ENDOSCOPY 02/27/2012 N/A Esophagogastroduodenoscopy with biopsy; Surgeon: Edd Toledo MD; Location: [facility]; Service: Endoscopy EAR SURGERY Bilateral tubes COLONOSCOPY SHOULDER ARTHROSCOPY 09/02/2019 Left LEFT SHOULDER ARTHROSCOPY, ROTATOR CUFF REPAIR, SUBACROMIAL DECOMPRESSION WITH ACROMIOPLASTY, LABRAL DEBRIDEMENT, OPEN BICEPS TENODESIS; Surgeon: Lee Mccoy MD; Location: [facility]; Service: Orthopedics Medical devices from this surgery are in the Medical Devices section. CARDIAC SURGERY Medical History Medical History Date Comments Acid reflux Hypertension Angina pectoris 2019 due to dehydrati on; kept overnight Arthritis left shoulder CAD (coronary artery disease) Colon polyp S/P primary angioplasty with coronary stent 2020 [facility] HLD (hyperlipidemia) Family History Medical History Relation [...] 1 32.7 Started: 03/10/1992 Smokeless Tobacco: Never Tobacco Cessation:Ready to Q uit: Not Asked; Counseling Given: Not Answered Alcohol Use Standard Drinks/Week Comments Not Currently 0 (1 standard drink = 0.6 oz pur e alcohol) Quit 2020 [facility] Utilities Answer Date Recorded In [...] Date Recorded PHQ-2 Total Score 0 03/12/2024 [facility] of Occupat ional Health - Occupational Stress [...] things needed for daily living? No 06/20/2021 [facility] IP Transportation Answer D ate Recorded In [...] Office Visit SEP Sleep Medicine [facility] [address] [facility] [address] [place] [address] Page Mccormick, COMMUNICATION SPEC [address] [address] Health Maintenance Due Date Last Done Comments [...] 140/90 Blood Pressure 153/71(2024 11:49 AM EST) Marci Greenfield RMA Maintain a healthy diet, exercise regularly and maintain an ideal body weight General No Annie Vogel RMA Stay Tobacco Free Lifestyle No Annie Vogel RMA Medical Devices Implanted Type Area Produce Assistant Device Identifier Shelf Expiration Date Model / Serial / Lot Healicoil Regenesorb Suture Farrell 5.5mm W/3 Ultrabraid Sutures - [id number] Implanted:Qty: 1 on 09/02/2019 by Lee Mccoy MD at [facility] Left: Shoulder [employer]:ORTHO 10/01/2019 [id number] / / [id number] Farrell Suture 4.5 Footprint Ultra Pack - [id number] Implanted:Qty: 2 on 09/02/2019 by Lee Mccoy MD at [facility] Left: Shoulder [employer] 05/01/2024 [id number] / / [id number] Procedures Procedure Name Priority Date/Time Associated Diagnosis Comments CPAP TITRATION Routine 11/01/2024 9:18 AM EDT Obstructive sleep apnea BASIC METABOLIC PANEL Early AM 03/13/2024 6:28 [...] Recently Relevant to Health Maintenance Results * CPAP TITRATION (11/01/2024 9:18 AM EDT) [facility] OVERALL RESULT [facility] DATE OF STUDY 11/01/2024 [facility] Study Type Adult [facility] PATIENT WEIGHT 243.0 [facility] APNEA INDEX 13.3 [facility] Apnea Hypopnea Index 51.3 [facility] RDI Index 51.3 [facility] Central Apnea Index 8.4 [facility] REM AHI [facility] Min O2 Saturation 85 [facility] RDI REM [facility] RDI nonREM 49.2 [facility] CPAP Device Name [facility] CPAP Pressure [facility] IPAP Pressure [facility] EPAP Pressure [facility] Auto Pressure Support [facility] Supplemental O2 [facility] Mask Type F20 [facility] Mask Size medium [facility] APAP Range [facility] Auto-IPAP Max [facility] Auto-IPAP Min [facility] Pressure Support [facility] PAP Compliance % [facility] Compliance Days [facility] Residual AHI [facility] PAP 90-95th Percentile [facility] 11/01/2024 9:18 AM EDT us Emiliano Nicole MD SLEEP CENTER ORDERABLES Final Re sult [facility] [address] [place] [address] * (ABNORMAL) LIPID SCREEN (03/13/2024 6:28 AM EST) Cholesterol 130 <200 mg/dL 03/13/2024 10:43 AM EST [facility] Comment: < 200 Desirable 200 - 239 Borderline High >= 240 High Triglyceride 503(H) <150 mg/dL 03/13/2024 10:43 AM EST [facility] Comment: < 150 Normal 150 - 199 Borderline High 200 - 499 High >= 500 Very High HDL 13(L) >=40 mg/dL 03/13/2024 10:43 AM EST [facility] [employer] [facility] Comment: > 60 Optimal 40 - 60 Acceptable < 40 Low LDL Calculated 44 <100 mg/dL 03/13/2024 10:43 AM [employer] [facility] Comment: < 100 Optimal 100 - 129 Near or above optimal 130 - 159 Borderline High 160 - 189 High >= 190 Very High Non-HDL-C Calculated 117 <=129 mg/dL 03/13/2024 10:43 AM [employer] [facility] [employer] Comment: <130 Desirable 130-159 Above Desirable 160-189 Borderline High 190-219 High >= 220 Very High Fasting Specimen? Unknown None 025 10:43 AM EST [facility] Blood VENOUS BLOOD / Unknown Venipuncture / Unknown 03/13/2024 6:28 AM EST 03/13/2024 6:47 AM EST us Foreign Meza MD CHEMISTRY ORDERABLES Final Result [facility] [address] [facility] , [address] [place] [phone] [facility] [address] [place] [address] * (ABNORMAL) BASIC METABOLIC PANEL (03/13/2024 6:28 AM EST) Sodium 135(L) 136 - 145 mmol/L 03/13/2024 7:41 AM EST [facility] Potassium 3.6 3.5 - 5.0 mmol/L 03/13/2024 7:41 AM EST [facility] Chloride 105 98 - 107 mmol/L 03/13/2024 7:41 AM EST [facility] Total CO2 19(L) 22 - 29 mmol/L 03/13/2024 7:41 AM EST [facility] Anion Gap 11 7 - 16 mmol/L 03/13/2024 7:41 AM EST [facility] Calcium 7.0(L) 8.6 - 10.4 mg/dL 03/13/2024 7:41 AM EST [facility] Glucose Lvl 202(H) 70 - 99 mg/dL 03/13/2024 7:41 AM EST [facility] BUN 15 6 - 20 mg/dL 03/13/2024 7:41 AM EST [facility] Creatinine 0.82 0.67 - 1.30 mg/dL 03/13/2024 7:41 AM EST [facility] eGFR (CKD-EPIcr 2020) 109 >=60 mL/min/1.7 3 m2 03/13/2024 7:41 AM EST [facility] Comment:Estimated GFR was ca lculated using the CKD-EPIcr (2020) equation refit without race. The equation is recommended by the National Kidney Foundation - [place] [employer] of Nephrology Task Force. Blood VENOUS BLOOD / Unknown Venipuncture / Unknown 03/13/2024 6:28 AM EST 03/13/2024 6:47 AM EST Foreign Meza MD CHEMISTRY ORDERABLES Final Result Performing Organization Address [facility] Co de Phone Number [facility] [address] [place] [phone] * (ABNORMAL) HEMOGLOBIN A1C (03/11/2024 10:20 PM EST) Hgb A1C 16.9(H) 4.2 - 5.6 % 03/12/2024 12:03 PM EST [facility] Est. Avg Glucose 438 mg/dL 03/12/2024 12:03 PM EST [facility] Blood VENOUS BLOOD / Unknown Venipuncture / Unknown 03/11/2024 10:20 PM EST 03/11/2024 10:22 PM EST Narrative [facility] - 03/12/2024 12:03 PM EST REFERENCE RANGE: Normal: 4.0-5.6% Pre-diabetes: 5.7-6.4% Provisional diagnosis of diabetes: >6.4% Hgb F>10% and anything which shortens red cell survival, such as hemolytic anemia, or unstable hemoglobin variants such as HbSS, HbSC, or HbCC, will lower the HbA1c value associated with a given level of glycemic control. Foreign Meza MD CHEMISTRY ORDERABLES Final Result Performing Organization Address [facility] Co de Phone Number [facility] [address] [place] [address] , [place] [address] [facility] [address] [place] [phone] * COLONOSCOPY (09/23/2023 9:04 AM EDT) Anatomical [...] Benefiber, Metamucil or Citrucel. Please follow the terra cotta roofer helper instructions for dosing guidelines. Work your way [...] Jacques Fatima MD Anesthesiologist [place], MAGDALENA NEEDLE PUNCH MACHINE OPERATOR HELPER [place] Moya, JENNIFER Manager Lpn Komal Lan MD Performing Provider Sangeeta Tanner [...] Most Recently Relevant to [place] [address] [employer] [address] [employer] [address] [employer] [address] [address] [facility] [address] [address] Advance Directives For more information, please contact: [phone] * Full Code (Latest Code Status on File) Date Activated Date Inactivated Comments 03/12/2024 4:23 AM 03/13/2024 7:14 PM * Full Code Date Activated Date Inactivated Comments 06/19/2021 5:16 PM 06/21/2021 7:40 PM * Full Code Date Activated Date Inactivated Comments 10/28/2018 12:22 AM 10/28/2018 10:47 PM Care Teams Refrigerator Mover Relationship Specialty Start Date End Date Milo Koch MD [address] [place] [address] PCP - General Family Medicine 02/26/23 Eusebia Martinez MD [address] [place] [phone] Physician Internal Medicine-Cardiovascular Disease 07/06/21 Roosevelt Salazar Ud, MD [address] [place] [address] Internal Medicine-Nephrology 09/24/23 Parth Santos MD [address] [place] [phone] Physician Otolaryngology 10/22/23
== END 2024-11-04 23:59 | disposition home or self-care (01) ==
LOC: LAB.DROPOF 11-05 11:17
PROVIDERS: PCP Physician Assistant; Visit Provider Physician Assistant
DX: I50.32 Chronic diastolic (congestive) heart failure (principal); N17.9 Acute kidney failure, unspecified
CPT/HCPCS: 80048; 83880